=== PATIENT | female | born 1990 | race Caucasian/White ===

== ENCOUNTER 2024-04-01 08:00 | Outpatient (RCR) | payer SELFPAY ==
--- NOTE | 2024-04-01 09:00 | BH.SGPN.GN ---
Behaviors/Verbalizations/Mental Status: [] Eye contact is good. Motor activity is appropriate. Appearance is casual. Speech is Appropriate. Mood is anxious. Affect is congruent. Thoughts are linear and logical. No evidence of psychosis. Reviewed daily check in sheet and no reports of suicidal ideations or intent Client Response/Progress/Benefit: [] Pt participated at times during the group discussion. Attentive. Today was pt's first day in IOP. I have debilitating OCD. I can't drive or be alone. Shared that she was recently admitting to a psychiatric facility for 2 weeks. Briefly elaborated on her OCD and her intrusive thoughts which also impact her functioning, depression, and anxiety. Limited progress noted as this was her first day. Benefited from group support, encouragement, and empathy. Will continue in IOP to prevent decompensation/re-admission, decrease intrusive thoughts, and improve functioning. Narrative Note: []
--- NOTE | 2024-04-01 10:10 | BH.SGPN.GN ---
Behaviors/Verbalizations/Mental Status: []Eye contact is fair. Motor activity is appropriate. Appearance is casual. Speech is Appropriate. Mood is anxious. Affect is congruent. Thoughts are linear and logical. No evidence of psychosis. Client Response/Progress/Benefit: [] Pt was an active participant in group discussions. Attentive during psychoeducation. Contributed during interactive discussions in which peers attempted to define crisis. Group identified crisis examples. Group also worked together to identify warning signs and unhealthy responses to crisis which included shutting down, isolation, avoidance, over-thinking, disordered eating, and self-harm. Pt identified top 3 warning signs as: loss of appetite, stop cooking, and stop wearing makeup. Benefited from increased understanding of crisis and awareness of personal responses to crisis. Pt will continue IOP tx to prevent decompensation, gain healthy coping skills, and increase daily functioning. Narrative Note: []
--- NOTE | 2024-04-01 10:27 | BH.COMM_ITS ---
Communication Note Communication with Client Communication Note: Met with pt to complete initial paperwork and administer the CSSR-S screening and risk assessment. Pt is a mild risk as pt reports thoughts of within the past month. Pt does have intrusive thoughts about suicide, but these thoughts scare pt and they are ego-dystonic. Pt denies any history of suicide attempts, no self-harm history, and no report (past or present) of actual suicidal ideations that were not intrusive thoughts. No access to weapons. Pt is future oriented and family is her number one protective factor. Discussed case with Dr. 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
--- NOTE | 2024-04-01 11:10 | BH.SGPN.GN ---
Behaviors/Verbalizations/Mental Status: []Pt alert and oriented, appropriate grooming/appearance. Eye contact good. Motor activity appropriate. Speech within normal limits. Affect congruent, mood anxious. Thoughts linear, logical, no signs of hallucinations or delusions. Client Response/Progress/Benefit: []Pt was an active participant in group discussions. Attentive during psychoeducation. In small group pt along with peers developed an active plan for their crisis warning signs. Pt identified three crisis warning signs as well as an action plan for each. One crisis warning sign was stop wearing makeup/taking care of self. Pt identified strategies to help with this such as: showering, doing skin care routine, journaling, opposite action, and focusing on accomplishing 1-2 small things. Benefited from increased awareness of crisis warning signs and by developing crisis intervention strategies. Will continue in IOP to continue decreasing reassurance, challenge negative thoughts, and prevent decompensation.
--- NOTE | 2024-04-02 09:00 | BH.SGPN.GN ---
Behaviors/Verbalizations/Mental Status: []Pt alert and oriented, neatly dressed and groomed. Eye contact good. Motor activity appropriate. Speech within normal limits. Affect congruent, mood anxious and depressed. Thoughts linear, logical, no signs of hallucinations or delusions. Reviewed pt?s symptom tracker, no risk for suicidal ideation, plan, or intent 04/02/24. Client Response/Progress/Benefit: [] Pt was an active participant in group discussions. Attentive. Able to identify mental health wins including driving herself to IOP today and cleaning out her fridge. ?Pt's stressor today is ?I?m exhausted and I feel guilty that easy tasks take so much out of me.? Pt stated pt is feeling ?depressed and sad? this morning. Pt receptive to feedback from peers which pt reported was helpful. Progress noted. Benefited from group support, encouragement, and feedback. Will continue in IOP to prevent decompensation, improve daily functioning, and gain distress tolerance skills. ?? Narrative Note: []
--- NOTE | 2024-04-02 11:31 | BH.MDN_ITS ---
Multi-Disciplinary Note Note 60-min Individual: Time Started:: 10:00 Date: 04/02/24 Purpose of session/treatment goals addressed:: To gather information on pt's current stressors, symptoms, triggers, history, and tx goals. Another goal was to build rapport and provide emotional support. Eye Contact:: Good Motor Activity:: Appropriate Appearance:: Neat Speech:: Soft Mood:: Anxious and Depressed Affect:: Congruent (tearful) Thoughts:: Racing, Other (intrusive thoughts) and No evidence of hallucinations/delusions noted Staff Interventions:: psychoeducation on: (OCD and intrusive thoughts), CBT techniques, mindfulness skills, rapport building, strengths perspective, completed risk assessment / safety planning and other (psychosocial assessment) Client Response:: Pt responded well to session, open to meeting with therapist. Pt recently was at a residential program and shared it was helpful, but pt is noticing now just how severe her OCD symptoms are. Pt has struggled for years with not knowing what diagnosis she had as pt's symptoms were similar to bipolar disorder, anxiety, and OCD. Pt stated when she was finally diagnosed with OCD a lot of things started to make sense. Pt feels that she has had OCD traits since she was a teenager, pt can remember having intrusive thoughts when she was a teenager, but pt feels that they never impacted me like this. Pt reported that after the of her last child, pt noticed that her anxiety and OCD got very bad. Pt shared that her labor and deliver was very traumatic and since pt has struggled. Pt was on medication that work for a while, but then pt stopped and since then she has not found something that has helped. Pt has been fearful that this is going to be my life and that she will not get better. Pt is unable to be alone due to her OCD and constant worry, so her husb and has been off work to be with her. Pt reports he is very supportive and has been learning more about OCD to better help pt. Pt struggles with guilt, depression with isolation and crying spells, and not enjoying things in life. Pt is open to working on creating exposure goals and she has been researching how to manage OCD since her diagnosis. Pt was given the first chapter of the Overcoming Unwanted Intrusive thoughts book for homework. Pt and therapist also practiced a calming skills during session, which pt reported was helpful. Pt will see therapist later this week for another session. Risks/Concerns:: Pt denies any suicidal ideations, plan, or intent. Pt denies any thoughts of . Progress Toward Goals/Plan:: Pt's first week of IOP tx, no progress to note yet. Pt does report benefitting from the group environment and feels like she will get a lot out of the program. Pt receptive to meeting with therapist and pt is receptive to the plan to meet twice a week as pt will be doing ERP. Pt's OCD symptoms are impacting her overall functioning including her ability to take care of herself, her kids, and be alone. Pt will continue IOP tx to prevent decompensation, gain distress tolerance, and improve daily functioning. Time Stopped:: 11:00
--- NOTE | 2024-04-02 11:31 | BH.PSA_ITS ---
Source of Information Presenting Problems/Circumstances Problems, Referral Source, Mental Status, Client: Pt is a 34-year-old female with a history of depression and a recent OCD diagnosis. Pt was referred to [facility] initially by her outpatient psychiatrist, but then pt decompensated further and went to a residential program. At admission, pt's symptoms of depression and OCD have been hindering her ability to be alone, use knives, drive, and take care of herself. Pt reports daily intrusive thoughts that pt feels unable to co ntrol/reduce. Pt also reports depressive symptoms that lead to isolation, staying in bed, and frequent crying spells. Psychiatric Presentation Psych Issues & Need for Admission Psychiatric Issues:: Major depressive disorder, recurrent, severe without psychosis; OCD; Primary support and work issues. Past Psychiatric History MH Treatment Hx Treatment History: No suicide attempts ever. one psych admit to [facility] in [place] from March 16 of March 29 for OCD and depression. She had gone to the ER shortly after [place] for anxiety and worsening intrusive thoughts but was not admitted. She first had signs of ego-dystonic OCD from age [age]. She was first depressed after her last baby who is now 4 years old so she was first depressed at age 30. She first took psych meds at age 31. Past medications include numerous SSRIs which she had horrible reactions. Pt has never tried Abilify or any antipsychotics except for Seroquel and it made her not sleep. Pt has never had ERP therapy before. First hospitalization:: 03/16/24-03/29/24 at [facility] Most recent hospitalization:: same as above Medication Trials:: Yes ECT Therapy:: No Age of first mental health symptoms: pt reports first symptoms around [age] but reported I noticed it but I realized it didn't impact me. Describe (age, circumstance, etc) any past hospitalizations: First hospitalization was this year at age 34 Current providers for mental health treatment (counselor, psychiatrist, disease case manager rn, etc.): Pt has been seeing someone at [facility] for medication management, but pt reports she would like to find a new provider. Development & Family of Origin Childhood Significant Childhood Events: Pt reports her childhood was good and grew up Restorationism. Pt chose to willingly left the Restorationism at age 17 but her family did not disown her and they still have a good relationship. Family Who currently lives in your home?: Pt lives with her and their three children. Describe family composition:: Pt is and she and her have been together for 15 years and have a healthy relationship. They have three children ages 15, 11, and 4. Pt is one of seven children and she reports having a good relationship with her family. Pt's parents are both alive and pt gets along well with them. Family History Family Hx of Psychiatric or AOD Problems: Pt denies history of mental health in her immediate family, but pt shared she has a first cousin with OCD. No report of addiction or by suicide in the family. Ethnicity Culture Do you identify yourself with any particular cultural, ethnic background, or community?: Yes (Pt was raised [employer]ism, but she is no longer a part of the adventist.) Sexuality Sexual Orientation: Heterosexual Spirituality Yazidi Do you currently identify with any organized pentecostal?: Oriental Orthodox Beliefs Is there a particular form of support from this community you can use for your recovery?: Yes Mental Status Memory Recent Memory: Good Remote Memory: Good Concentration Concentration: Good Eye Contact Eye Contact: Good Speech Speech: Repetitious Thought Process Thought Process: Obsessions and Ruminations Insight: Good Judgment: Good Behavior: Anxious Orientation Orientation: Time, Person, Place and Situation Appearance Appearance: Appropriate Mood Mood: Anxious and Depressed Affect Affect: Constricted (tearful) Suicide Assessment Suicidal Ideation Have you ever felt like hurting yourself?: Yes Please explain:: Pt has intrusive thoughts about suicide but these are ego- dystonic and give pt severe anxiety. Pt does have thoughts of wishing she could fall asleep and not wake up due to the anxiety. Were you using ETOH/drugs at the time?: No Suicidal Intentional Rating Scale (SIRS): No suicidal thoughts (past or present) (thoughts are intrusive and ego-dystonic.) Physician Notification Violent Behavior/Abuse History Homicidal Ideation Do you have any homicidal thoughts? If so, explain:: No (pt's thoughts about hurting others are related to her OCD.) Abuse Have you ever been abused?: No Please explain:: Pt denies any abuse in childhood or as an adult. Life Events Are there any other significant life events?: Financial loss (pt's has not been able to work consistently due to pt's decompensating mental health- he stays home to be with pt. ) and Hardships (Pt's last labor was traumatic and triggered a lot of pt's OCD symptoms. Pt is currently not able to function at home and this is significantly distressing to pt as she values being a and mother.) Safety Do you ever feel threatened in your home? If yes, describe:: No Adult Social History Age 17 to Present Describe your current support system:: Pt has strong support from her , family, sisters, and her in-laws. Substance Use Substance Substance Use Type: Caffeine Specific Drugs What specific drugs have you used?: Pt denies any drug or alcohol abuse or use. IV Substance Use Do you have a history of IV use?: none reported Leisure/Social Activities Interests What do you enjoy or might be interested in learning about?: Pt shared she used to enjoy a lot but she has been depressed to engage in her hobbies. These hobbies include; gardening, crafting, crocheting, playing with her kids, drinking coffee, and having sister days. Education & Occupational Histo Education What is your level of education?: Middle School (Gr. 6-8) (Pt was raised [employer]ism, so pt completed 8th grad. 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 List any previous volunteering you may have done:: Pt is interested in doing this someday. Service Service Have you ever been in the ?: No Legal History Records Have you had any past legal charges?: No Do you have any current legal charges?: No Have you ever been incarcerated? If yes, describe:: No Court Orders Have you had any past court orders for psychiatric treatment?: No Do you have a present court order for psychiatric treatment?: No Problem Checklist Current Problem Areas Problem List: Nutritional/Eating pattern changes (when depressed pt has a low appetite ), Depressed mood/sad, Bereavement (pt reports grief due to her ability to function being so bad.), Anxiety, Traumatic stress, Inattention, Sleep problems and Pertinent health issues (ruptured uterus during emergency in October 2019 and bilateral tubal ligation which she later had reversed in 2023.) Discharge Planning Needs Anticipated Follow-Up Mental Health Center (Name/Phone Number):: Pt saw a provider at [facility], but pt would like to switch. Safety Fire Boss's Assessment Client's Needs What are the client's goals?: Get back to functioning at her baseline, reduce OCD, and be able to be the mom I want to be again. Diagnoses Diagnoses Diagnosis #1:: MDD, recurrent, severe, without psychosis. Diagnosis #2:: OCD Interpretive Summary Interpretive Summary Interpretive Summary: Pt is a 34-year-old female with a history of depression and OCD who was referred to [facility] after being admitted from March 16 to March 29, 2024 at [facility] in [place], [place]. Pt states that her symptoms of OCD and depression began about 4 years ago 1 week after the traumatic of her third child. She states she was in labor for 48 hours and had to have an emergency due to distress and pt had a ruptured uterus. This was very traumatic for pt and Pt began having intrusive thoughts after this including intrusive thoughts of self-harm and harming others and thoughts that she might be a pedophile and all of these thoughts were extremely ego-dystonic. 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 Pt was recently diagnosed with bipolar 2 disorder because she states that she took 8 antidepressants which gave her possible manic symptoms. During the interview Pt states that when taking a different SSRI she had tremor, diarrhea, nausea and vomiting. She slept less than 2 hours a night but she states that she was extremely tired all throughout this. She had low energy and was not talking fast nor getting a lot done during this episode. During these episodes her intrusive thoughts also greatly worsened. Dr. Hernandez ([facility] psychiatrist) does not believe pt was exhibiting manic symptoms and does not feel pt has bipolar disorder. Pt endorses passive thoughts of due to the severity of her OCD and depression. Pt reports since discharge from the hospital still has intrusive thoughts about harming herself or others and remains very depressed. She does not use any caffeine now, but she used to. In the past her intrusive thoughts also have been around believing she had breast cancer and then doing frequent self breast exams resulting in physical pain. She took Celexa for 2 years which she did okay on but when she wanted to wean off she worsened. She then was changed to Prozac but her symptoms worsened. She had her remove all knives out of the home except 1 because she was having intrusive ego- dystonic thoughts that she would harm herself with a knife. Pt reports ?OCD has ruined my life and my kids lives.? She denies self-harm, hallucinations or delusions. She endorses sadness, hopelessness, guilt, low energy, fatigue, decreased concentration. No report of alcohol or drug use or abuse. Pt denies any abuse during childhood or as an adult. Treatment Plan Recommendations Recommendations Guidelines Recommendations:: Pt will start IOP as the structure, support, education and group therapy will hopefully prevent worsening of Pt's symptoms that could require rehospitalization. The Pt felt safe during the interview and if it anytime she does not feel safe she agrees to let us know or go to the emergency room. The risk, options, possible side effects and complications of the medications were discussed between pt and Dr. Hernandez and pt understands and accepts these.
--- NOTE | 2024-04-02 11:31 | BH.MTP ---
Master Treatment Plan Patient Information Program Physician:: Dr. Shelia Hernandez Primary Therapist:: Shanita RICHARDS Psychiatric Diagnoses Psychiatric Diagnoses:: Major depressive disorder, recurrent, severe without psychosis F33.2; OCD Diagnosis Code(s):: F33.2 Estimated LOS Estimated LOS (in weeks):: 8 Problem/Goal #1 Problem/Goal #1 Stated Goal:: Pt will reduce overall frequency and intensity of anxiety and OCD symptoms so that daily functioning is less impaired. Description of Barriers: Pt has been on numerous medications in the past and had significant side effects. Pt reports symptoms of OCD have gotten so bad that pt is unable to be alone. Functional Impact: Pt is a 34-year-old female with a history of depression and a recent OCD diagnosis. Pt was referred to [facility] initially by her outpatient psychiatrist, but then pt decompensated further and went to a residential program. At admission, pt's symptoms of depression and OCD have been hindering her ability to be alone, use knives, drive, and take care of herself. Pt reports daily intrusive thoughts that pt feels unable to control/reduce. Pt also reports depressive symptoms that lead to isolation, staying in bed, and frequent crying spells. Goal Relevant Strengths/Supports: Pt is receptive to treatment and prior to coming to [facility], pt did a residential program. Pt has strong family support and insight to her OCD symptoms. Objectives Objective #1: Stated Objective: Pt will improve ability to cope with OCD symptoms and reduce avoidance by setting 1-2 small exposure goals each week. Interventions: Through group and individual therapy, pt will gain skills on distress tolerance and sitting with the uncomfortable. Therapist will help pt set small, realistic exposure goals each week. Therapist will have pt practice these goals both in session and at home. Therapist will provide psychoeducation on why this is important to reducing anxiety, OCD, and phobias. Therapist will also provide psychoeducation on intrusive thinking and reducing safety behaviors. Discharge Criteria: Pt will have accomplished this goal when pt can report accomplishing at least 1 exposure goal per week and can report reduced avoidance overall. Target Date: 05/27/24 Review Date: 04/22/24 Status: open Objective #2: Stated Objective: Pt will identify 2-3 anxiety and OCD triggers and 2 coping skills to use to manage anxiety and to reduce DSM-5 scores. Interventions: Through group and individual sessions, pt will gain awareness of anxiety and OCD triggers and learn numerous techniques to manage anxiety and OCD symptoms. Therapist will teach mindfulness and other calming techniques to manage symptoms and increase distress tolerance skills. Therapist will also help pt utilize mindfulness skills to sit with the uncomfortable to increase confidence in managing triggers. Discharge Criteria: Pt will have met this goal when pt can identify at least 2 triggers and 2 ways to cope with anxiety and OCD and when his DSM-5 scores have reduced. Target Date: 05/27/24 Review Date: 04/22/24 Status: open Problem/Goal #2 Problem/Goal #2 Stated Goal:: Pt will decrease depressive symptoms, hopelessness, isolation, crying spells, and negative self-talk. Description of Barriers: Pt has been on numerous medications in the past and had significant side effects. Pt reports symptoms of OCD have gotten so bad that pt is unable to be alone. Functional Impact: Pt is a 34-year-old female with a history of depression and a recent OCD diagnosis. Pt was referred to [facility] initially by her outpatient psychiatrist, but then pt decompensated further and went to a residential program. At admission, pt's symptoms of depression and OCD have been hindering her ability to be alone, use knives, drive, and take care of herself. Pt reports daily intrusive thoughts that pt feels unable to control/reduce. Pt also reports depressive symptoms that lead to isolation, staying in bed, and frequent crying spells. Goal Relevant Strengths/Supports: Pt is receptive to treatment and prior to coming to [facility], pt did a residential program. Pt has strong family support and insight to her OCD symptoms. Objectives Objective #1: Stated Objective: Pt will learn and utilize 2-3 healthy coping strategies to better manage depressive symptoms as shown by a decrease of DMS-5 symptoms for depression. Interventions: Through group and individual sessions, therapist will help pt identify triggers and warning signs of depression and guilt including emotional, physical, and behavioral changes. Therapist will teach pt various coping skills to manage symptoms and give pt tangible resources to use to regulate emotions. Therapist will use cognitive restructuring techniques and help pt gain awareness of negative thoughts that reinforce guilt and depression. Therapist will provide psychoeducation on maintenance cycles and help pt learn ways to break unhealthy maintenance cycles. Therapist will help pt incorporate behavioral activation and assist pt in setting SMART goals. Discharge Criteria: Pt will have met this goal when can report learning and using at least 2 coping skills to manage depressive symptoms and reduce isolation. Additionally, pt will have met this goal when pt's DSM-5 scores for depression decrease. Target Date: 05/27/24 Review Date: 04/22/24 Status: open Objective #2: Stated Objective: Pt will accomplish 1-2 behavioral activation goals each day while in IOP tx. Interventions: Therapist will provide education on the importance of opposite action, small goals, and changing behavior to change emotion. Therapist will provide pt with a chart to track habits that pt can fill out daily. Therapist will help pt give self credit for her wins to promote motivation and self-confidence. Discharge Criteria: Pt will have accomplished this goal when she can report accomplishing 1-2 behavioral activation goals and it is shown on pt's weekly tracker. Target Date: 05/27/24 Review Date: 04/22/24 Status: open
--- NOTE | 2024-04-03 09:05 | BH.SGPN.GN ---
Behaviors/Verbalizations/Mental Status: [] Eye contact is good. Motor activity is appropriate. Appearance is casual. Speech is Appropriate. Mood is anxious and dysthymic. Affect is congruent. Thoughts are linear and logical. No evidence of psychosis. Reviewed daily check in sheet and no reports of suicidal ideations or intent. Client Response/Progress/Benefit: [] Pt was an active participant in group discussions. Attentive. Did well to identify 2 mental health wins including being able to get to group today despite wanting to stay in bed. Identified use of opposite action and challenging herself to drive herself. Additional win noted as using opposite action and positive self-talk when struggling with depressive sx yesterday. Current stressor noted as struggling with feeling low and less motivated today but her son asked to go to the library. Benefited from group support, encouragement, and feedback. Will continue in IOP to prevent decompensation, promote mood stability, and increase consistent use of healthy coping. Narrative Note: []
--- NOTE | 2024-04-03 10:10 | BH.SGPN.GN ---
Behaviors/Verbalizations/Mental Status: [] Pt alert and oriented, casually dressed and groomed. Eye contact good. Motor activity appropriate. Speech within normal limits. Affect congruent, mood depressed. Thoughts linear, logical, no signs of hallucinations or delusions. Client Response/Progress/Benefit: []Pt an active participant in group discussions on defining conflict (internal/external) and possible benefits to conflict. Attentive during psychoeducation on conflict styles (avoidant, accommodating, competing, cooperative) and engaged during group discussion in which peers identified the benefits and consequences to each conflict style. Pt identified that she tends to be avoidant more than the other styles. Benefited from increased awareness of the impact of conflict styles in mental health. Will continue in IOP tx to prevent decompensation, stabilize mood, and improve functioning. Narrative Note: []
--- NOTE | 2024-04-03 11:10 | BH.SGPN.GN ---
Behaviors/Verbalizations/Mental Status: []Client alert and oriented, casually dressed and groomed. Eye contact good. Motor activity appropriate. Speech within normal limits. Affect congruent, mood euthymic and anxious. Thoughts linear, logical, no signs of hallucinations or delusions. Client Response/Progress/Benefit: [] Pt engaged in session AEB contributing to discussion and engaging in small group. Attentive during discussion on strategies for more effectively managing conflict in personal life. Pt participated in small group for activity and did well practicing how to manage conflict scenarios. Pt given handout on fair fighting rules and how to identify common conflict barriers. Pt indicated what needs improvement in conflict for them which was to ?take time when things get heated and return? when addressing conflict. Appeared to benefit from gaining strategies to help Pt better manage conflict. Will continue IOP tx prevent decompensation, increase distress tolerance skills, and improve daily functioning. ? Narrative Note: []
--- NOTE | 2024-04-04 09:00 | BH.NA ---
Physical Data Vital Signs Pulse Rate: 79 Blood Pressure: 150/70 Height/Weight Height: 1.55 m Weight:: 102.058 kg Weight in Pounds: 225.0 lbs Current Medication Compliance Medication Compliance Do you take your medication as prescribed?: Yes Nutritional History Appetite Nutritional Instructions: Describe your appetite:: Good Additional nutritional information:: Client reports appetite is good now, but does report losing about 65lbs in 4-5 months due to lack of appetite. Functional Assessment Sleep Pattern Describe any problems with sleeping: Client states she sleeps about 4-5 hours per day. 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 If so, list type and date:: Yes (tubal, tubal reversal, ) Substance Abuse Substance Abuse Please describe substance abuse in the last 30 days:: Client denies alcohol, tobacco, substance or caffeine use. Mental Status Summary Mental Status Significant Findings/Observations on Appearance and Mood:: Client is alert and oriented x 4. Client is casually groomed. Client is cooperative with assessment. Client makes good eye contact. Client's voice has normal rate and volume. Client has an appropriate affect, but is tearful at times. Client makes logical associations and has normal processing. Client denies delusions/hallucinations. Client does report intrusive thoughts about , but denies active SI or intent or plan. Suicide Assessment Suicidal Ideation Are you currently or have you been suicidal in the past?: Yes Suicidal Intentional Rating Scale (SIRS): Suicidal thoughts (past) Physician Notification Past Psychiatric History MH Treatment Hx Past Psychiatric Medications:: Celexa (yun) Prozac (agitation) Wellbutrin (uyn) Luvox (hallucinations of killing herself) Age of first mental health symptoms: Client states looking back, she thinks she has had some OCD tendencies since age 12-15. Client states she was not on medication for mental health at all until she had some depression about 4 years ago. Describe (age, circumstance, etc) any past hospitalizations: [facility]- 03/12/24-03/29/24- anxiety, OCD, intrusive thoughts about harming herself or others (with no intent) Current providers for mental health treatment (counselor, psychiatrist, porter sample case, etc.): [facility], [facility] for psychiatry Fall Risk Assessment Age Age: Less than 60 Mental Status Mental Status: Willing & able to ask for assistance when needed Physical Status Physical Status: No problems Impairments Impairments: None Elimination Elimination: Continent AND independent Gait or Balance Gait or Balance: Walks independently Hx of Falls History of falls in the past 6 months: No known history Medications/Substances Psychotropics:: Mood stabilizers Medications/substances used within the past 24 hours or ordered to administer: 1-2 of the medications/substances listed above Total Score Total Points:: 1 RN Summary of Impressions Impressions Recommendations Impressions: Psychiatric Issues: 1. Major depressive disorder, recurrent, severe without psychosis 2. OCD 3. Primary support and work issues. Level of Care How do the client's current symptoms and functional deficits support need for this level of care?: Client was referred to IOP by outpatient psychiatrist for mood instability, intrusive thoughts. Client was hospitalized at [facility] after her initial intake with IOP. Client was hospitalized 03/12/24-03/29/24. Client is tearful when she talks about current mental health, stating she continues to have intrusive thoughts about and about harming herself. Client states she has no SI intent or plan, and states her children and her are her protection factors. Client states she feels so depressed it is difficult to get out of bed most days and client often thinks why am I alive?. Client is apprehensive about medications, stating she has not had good experiences on SSRI's (not sleeping, intrusive thoughts). Client states after her 4 year old was born, she had obsessive thoughts about having breast cancer and constantly was doing checks and going to the doctor to make sure she was okay. Client states she is trying not to do any compulsions at this time, which she states is stressful. Client is tearful when she states she just wants to feel better and wants the intrusive thoughts to stop. IOP will promote gains and prevent further decompensation while providing social support and skills training.
--- NOTE | 2024-04-04 10:10 | BH.SGPN.GN ---
Behaviors/Verbalizations/Mental Status: [] Pt alert and oriented, casually dressed and groomed. Eye contact good. Motor activity appropriate. Speech within normal limits. Mood: anxious. Affect: congruent. Thoughts linear, logical, no signs of hallucinations or delusions. Client Response/Progress/Benefit: [] Pt did not participate in group discussions, however was attentive during psychoeducation on self-sabotage and its impact on mental health. Attentive as peers worked together to define self-sabotage. Attentive as peers provided examples of the eight types of self-sabotage (procrastination, self-medicating, unrealistic expectations, people-pleasing, and poor boundaries). Attentive as peers worked to identify reasons for self-sabotage behaviors (feels comfortable, can distract,perceived control, fear of success, and a type of self-protection). Seemed to benefit from gaining awareness about the self-sabotage. Pt to continue IOP tx to prevent decompensation/re-admission to psych unit, stabilize mood, increase healthy coping, decrease intrusive thoughts, and improve functioning. Narrative Note: []
[2024-04-04 12:09] VITALS: BP 150/70; PULSE 79
--- NOTE | 2024-04-04 12:52 | PCM.BH.PSYEV ---
Psychiatric Evaluation Initial Evaluation Initial Evaluation: History of Present Illness: [] The patient is a 34-year-old female with a history of depression, OCD and recent diagnosis of possible bipolar disorder who was referred to the [facility] and behavioral health after being admitted from March 16 to March 29, 2024 at [facility] in [facility]. The patient states that her symptoms of OCD and depression began about 4 years ago 1 week after the traumatic of her third child. She states she was in labor for 48 hours and had to have an emergency due to distress. She was found to have meconium stained amniotic fluid and and was told she had a uterine rupture and pressured into tubal ligation at that time. The patient later reversed this in December 2023 as it felt forced. The patient began having intrusive thoughts after this of her child third child of involving intrusive thoughts of self-harm and harming others and thoughts that she might be a pedophile and all of these thoughts were extremely ego-dystonic. 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 The patient was recently diagnosed with bipolar 2 disorder because she states that she took 8 antidepressants which gave her possible manic symptoms. During the interview the patient states that when taking a different SSRI she had tremor, diarrhea, nausea and vomiting. She slept less than 2 hours a night but she states that she was extremely tired all throughout this. She had low energy and was not talking fast nor getting a lot done during this episode. During these episodes her intrusive thoughts also greatly worsened. The patient endorses passive thoughts of and since discharge from the hospital still has intrusive thoughts about harming herself or others and remains very depressed. She does not use any caffeine. In the past her intrusive thoughts also have been around believing she had breast cancer and then doing frequent self breast exams resulting in physical pain. She took Celexa for 2 years which she did okay on but when she wanted to wean off she worsened. She then was changed to Prozac but her symptoms worsened. She had her remove all knives out of the home except 1 because she was having intrusive ego-dystonic thoughts that she would harm herself with a knife. She denies self-harm, hallucinations or delusions. She endorses sadness, hopelessness, guilt, low energy, fatigue, decreased concentration. Current Psychiatric Medications: [] Lamictal 50 mg p.o. daily (supposed to go up to 75 mg on April 03 but she has not), gabapentin 300 mg p.o. nightly which is help with sleep. Not taking Vistaril anymore. Past Psychiatric History: [] No suicide attempts ever. 1 psych admit as noted above March 16March 29 for OCD and depression. She had gone to the ER shortly after [facility] for anxiety and worsening intrusive thoughts but was not admitted. She first had signs of ego-dystonic OCD from age [age]. She was first depressed after her last baby which who is now 4 years old so she was first depressed at age 30. She first took psych meds at age 31. Past medications include numerous SSRIs which she had horrible reactions to including those described in the present illness. She has never tried Abilify or any antipsychotics except for Seroquel and it made her not sleep because she got what sounds like akathisia from it. Substance Use History: [] Non-smoker. No vaping. No alcohol and no drug use. Allergies: [] Morphine and opiates psych meds plus amino acids and a woman's vitamin and fish oil. Medications: [] See above Past Medical History: [] Supraventricular tachycardia, overweight, ruptured uterus during emergency in October 2019 and bilateral tubal ligation which she later had reversed in 2023. Regular menstrual periods and uses condoms now but is getting vasectomy soon. She understands the risk he knows of getting again and does not wish to get again but reversed her tubal ligation as she felt she was pressured into it. Family Psychiatric History: [] Mother 62 years old and father 61 years old. She has a first cousin with OCD. No substance issues and no completed suicides in the family. Personal/Social History: [] Patient was born and raised [employer] in [facility]. She lived with her parents and 6 siblings growing up and her family was supportive of her choice to leave it as a teen at age 17 and she had a good relationship with her family. She completed eighth grade and did not attend college. She denies physical, emotional or sexual abuse. She has been to her for 15 years and they have been together for 3 years prior to that. 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 She lives with her and children and [place] and has been for 15 years. Her is her main social support but she is also close to family and friends. Her was formally Rest[employer]ist as well and works in construction but currently he states at home to take care of her. She is sexually active with her but has decreased interest due to her mental health issues. She would like to find a job involving caring for the elderly. 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 Review of Systems: [] Review of systems is negative except as noted in present illness. Vital Signs: [] Vital signs reviewed in the nurses notes and updated and the patient is deemed medically able to participate in the IOP. Mental Status Examination: [] The patient is a 34-year-old female who appears normal for stated age and is casually dressed and groomed with good hygiene. She is ambulatory with a normal gait and has no psychomotor agitation or retardation. She is cooperative and pleasant during the interview. Eye contact is good and speech is normal rate and rhythm and fluent with no pressure. Mood is anxious and depressed. Affect is constricted. Thought process is goal-directed and organized. Thought content: There is evidence of passive thoughts of and there is evidence of intrusive thoughts which are ego dystonic and involves self-harm, harming others, suspicion of being a pedophile and other. No definitive rituals. There is no evidence of suicidal ideation, homicidal ideation, plan for suicide, hallucinations, delusions or symptoms of yun. Reality testing is intact. Intelligence is average. Judgment is intact. Insight Limited but some present. Impulsivity moderate. Diagnoses: [] 1. Major depressive disorder, recurrent, severe without psychosis 2. OCD 3. Primary support and work issues. Plan: [] The patient will start the IOP at [facility] as the structure, support, education and group therapy will hopefully prevent worsening of the patient's symptoms that could require rehospitalization. The patient felt safe during the interview and if it anytime she does not feel safe she agrees to let us know or go to the emergency room. The risk, options, possible side effects and complications of the medications were discussed with the patient and she understands and accepts these. The patient agrees to try result he as currently her medication really does not treat her OCD and really does not even treat her depression. She has had difficulty tolerating any antidepressants but agrees to try low-dose of an antipsychotic which are also used to treat depression and anxiety. However result he was deemed to be too expensive on the patient's insurance so prescription was sent in for Abilify 2 mg p.o. daily. If she tolerates this we will later increase the Lamictal to 75 mg and possibly increase the Abilify as indicated. Could try Latuda or Vraylar later but insurance she is self-pay and they probably will not pay be able to afford. She will continue to follow-up with her outpatient providers and I will see the patient in follow-up in 1 to 2 weeks.
--- NOTE | 2024-04-04 13:06 | BH.DR.ITP ---
Initial Treatment Plan Patient Information Visit Information: ADMISSION DATE: EXPECTED LOS: 4-6 weeks Problems/Symptoms Problem #1:: Depression Symptom:: Sadness, hopelessness, passive thoughts of , guilt, low energy, fatigue, decreased concentration, biological disruption of appetite and sleep Problem #2:: Anxiety Symptom:: Worry, rumination, intrusive ego-dystonic thoughts
--- NOTE | 2024-04-04 16:10 | BH.MDN_ITS ---
Multi-Disciplinary Note Note 60-min Individual: Time Started:: 11:15 Date: 04/04/24 Purpose of session/treatment goals addressed:: To work on goal #1 of pt's tx plan. Reviewed intrusive thoughts and types of intrusive thoughts. Eye Contact:: Good Motor Activity:: Appropriate Appearance:: Neat Speech:: Appropriate Mood:: Anxious, Depressed and Other (hopeful) Affect:: Congruent Thoughts:: Linear, Logical and No evidence of hallucinations/delusions noted Staff Interventions:: mindfulness skills (practiced a mindfulness skill in session), strengths perspective, goal setting and other (reviewed chapter 1 and 2 from the overcoming unwanted intrusive thoughts book.) Client Response:: Pt responded well to session, open to meeting with therapist. Pt reports feeling depressed, but being at [facility] is giving her some hope. Pt read the first chapter of the overcoming unwanted intrusive thoughts book and said this book is me. Pt stated she connected so much with the false comfort and she is gaining more awareness of what intrusive thoughts she has. Pt stated her most discomforting intrusive thoughts include thoughts of killing herself, thoughts of hurting her children, and thoughts of going crazy. Pt has had intrusive thoughts about sexually abusing her child, but pt stated she has been able to overcome that one. Pt receptive to learning about forbes mind as a technique to reduce reassurance seeking and false comfort when pt has dist urbing intrusive thoughts. Pt gained awareness of why thoughts become sticky and why some thoughts produce anxiety while others do not. Discussed how typically intrusive thoughts that become sticky are ego-dystonic and go against what pt values. Pt encouraged to practice calming skills when she gets the wave of anxiety that comes with intrusive thoughts. Pt and therapist practiced deep breathing, visualization, and 5-senses. Pt also encouraged to begin practicing the forbes mind self-talk examples from the book. Pt was given chapter 3 for homework. Risks/Concerns:: Pt denies any suicidal ideations, plan, or intent. Pt denies any thoughts of . Progress Toward Goals/Plan:: Pt responding well to IOP tx, she reports being with peers and learning more about OCD to be life changing. It's symptoms are ongoing, but pt is receptive to the treatment plan and willing to work on exposure goals. Pt's symptoms of OCD and depression interfere with her daily functioning and often lead to pt isolating and crying most of the day. Pt will continue IOP tx to prevent decompensation, increase distress tolerance skills, and improve daily functioning. Time Stopped:: 12:15
--- NOTE | 2024-04-08 11:10 | BH.SGPN.GN ---
Behaviors/Verbalizations/Mental Status: [] Pt alert and oriented. Appearance is casual. Eye contact good. Motor activity appropriate. Speech within normal limits. Affect is anxious. Mood is congruent. Thoughts linear, logical, no signs of hallucinations or delusions. Client Response/Progress/Benefit: [] Pt was engaged during discussion and experiential activity. Completed the worksheet challenging them to develop a personal SMART goal. Pt chose a SMART goal to drive by myself for 15 minutes a week. Believes this goal will benefit her by not being reliant on her as much. Identified obstacles such as family interference, depression, negative thoughts. .Benefited from this group by developing a short-term SMART goal related to mental health. Will continue IOP to prevent decompensation/re-admission to psych unit, decrease intrusive thoughts, and improve functioning. Narrative Note: []
--- NOTE | 2024-04-08 15:09 | BH.MDN ---
Multi-Disciplinary Note Note 45-min Individual: Time Started:: 09:20 Date: 04/08/24 Purpose of session/treatment goals addressed:: To work on goal #1 of pt's tx plan by identifying ERP goals and goal #2 to identify behavioral activation goals. Eye Contact:: Good Motor Activity:: Appropriate Appearance:: Neat Speech:: Soft Mood:: Anxious and Depressed Affect:: Full Thoughts:: Racing and Other (intrusive thoughts) Staff Interventions:: CBT techniques, mindfulness skills, strengths perspective, goal setting (began working on the fear ladder.) and taught coping skills Client Response:: Pt responded well to session, open to meeting with therapist. Pt reports feeling low today and shared this weekend was difficult. 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 Pt was more hopeful today compared to last session as pt did not seek as much reassurance and she shared being excited about goal setting. Pt and therapist worked first on identifying daily tasks that pt wants to return to and/or keep doing consistently. These tasks included doing her makeup, showering, cooking, practicing mindfulness, and staying out of her bedroom. Pt can see the benefit in beginning to track these habits and she will start doing this every day she comes to [facility]. Pt and therapist also discussed ERP and the creation of the fear ladder. Pt identified some of her high level fears which included using a knife around her kids. Pt brainstormed other goals that could go on her fear ladder including driving by herself, being alone with her kids, going to her mother and her [id number] houses, and holding a knife around her kids. Pt gained insight to how ERP works and how to set realistic goals. Pt also reviewed some of the calming skills that were discussed last week. Pt will take home the fear ladder and continue to work on it with her . Risks/Concerns:: Pt denies any suicidal ideations, plan, or intent. Pt denies any thoughts of . Progress Toward Goals/Plan:: Limited progress as pt recently started [facility], but pt is so far very consistent and engaged in group sessions. Pt's OCD and depressive symptoms continue to interfere with her daily functioning and lead to significant distress. Pt reports being willing to work on ERP goals, but pt recognizes it will be hard work. Pt also receptive to setting behavioral activation goals and pt feels that this will help her get back into her baseline. Pt will continue IOP tx to prevent decompensation, improve daily functioning, and gain distress tolerance skills. Time Stopped:: 10:00
--- NOTE | 2024-04-09 09:00 | BH.SGPN.GN ---
Behaviors/Verbalizations/Mental Status: []Pt alert and oriented, casually dressed and groomed. Eye contact good. Motor activity appropriate. Speech within normal limits. Affect congruent, mood depressed. Thoughts linear, logical, no signs of hallucinations or delusions. Reviewed pt?s symptom tracker, no risk for suicidal ideation, plan, or intent /. Client Response/Progress/Benefit: [] Pt was an active participant in group discussions. Attentive. Able to identify mental health wins including I drove myself today and I cooked last night.? Pt stated she had not been able to do these things recently due to her depression. Pt's stressor today is ?things I used to be able to do so easily are so hard right now.? Pt receptive to support from peers. Pt stated pt is feeling depressed but a smidgen better this morning. Pt receptive to feedback from peers which pt reported was helpful. Progress noted. Benefited from group support, encouragement, and feedback. Will continue in IOP tx to prevent decompensation, promote mood stability, and increase distress tolerance. Narrative Note: []
--- NOTE | 2024-04-09 10:10 | BH.SGPN.GN ---
Behaviors/Verbalizations/Mental Status: [] Eye contact is good. Motor activity is appropriate. Appearance is casual. Speech is Appropriate. Mood is anxious and depressed. Affect is congruent. Thoughts are linear and logical. No evidence of psychosis Client Response/Progress/Benefit: [] Pt responded well to session AEB contributing to small group discussion, taking notes, and listening attentively to others. Group defined anger and discussed the benefits of managed anger and anger as a secondary emotion. Group shared perspective on benefits of anger as advocating for self and getting needs met, a means to internal change, as well as a catalyst for change. Pt engaged in group discussion on common triggers for anger. Identified when other's expectations are not the same as pt's as an anger trigger. Appeared to benefit from increased knowledge of the anger cycle as well as personal triggers. Will continue IOP to increase healthy coping, prevent decompensation, and improve functioning. Narrative Note: []
--- NOTE | 2024-04-09 10:59 | PCM.BH.PN_ITS ---
Progress Note Progress Note: History of Present Illness/Interim History: The patient is a 34-year-old female with a history of depression and OCD who is seen in follow-up at the [facility] behavioral health [facility]. I last saw the patient 1 week ago and at that time Abilify was added and she has been taking it for 5 days. She states that her sadness now has lessened in the past few days and she is feeling slightly less depressed currently. The patient had been admitted March 16March 29 to a psychiatric unit due to having passive thoughts of and intrusive thoughts about harming herself or others due to her OCD. In the past she also had intrusive thoughts around believing she had breast cancer and did frequent self breast exams resulting in physical pain. She has trouble going on and off meds in the past and describes feeling worse on the Abilify for several days until recently when she started feeling better. She still has some sadness and occasional hopelessness. She is having less passive thoughts of lately. She continues to have the [place] dystonic thoughts that are intrusive and involve thoughts of self-harm, suspicion of being a pedophile and other negative thoughts. There is no evidence of suicidal ideation, plan for suicide, homicidal ideation, hallucinations or delusions. Current Psychiatric Medications: [] Lamictal 50 mg p.o. daily; gabapentin 300 mg nightly but she can take a second dose during the day if she gets extremely anxious. The second dose of the gabapentin does make her tired though. Abilify 2 mg p.o. daily (x 5 days only). Mental Status Examination: [] The patient is a 34-year-old female who appears normal for stated age is casually dressed and groomed with good hygiene. She is ambulatory with a normal gait and has no psychomotor agitation or retardation. She is cooperative during the interview. Eye contact is good and speech is normal rate and rhythm and fluent with no pressure. Mood is anxious and depressed. Affect is mildly constricted. Thought process is goal-directed and organized. Thought content: There is evidence of some passive thoughts of and continued ego intrusive thoughts described in the present illness. There is no evidence of suicidal ideation, plan for suicide, homicidal ideation, hallucinations or delusions. Reality testing is intact. Intelligence is average. Judgment is intact. Insight fair and improving. Impulsivity moderate. Diagnoses: [] 1. Major depressive disorder, recurrent, severe without psychosis 2. OCD 3. Primary support and work issues Plan: [] The patient will continue the IOP at [facility] as the structure, support, education and group therapy will hopefully prevent worsening of the patient's symptoms that could require rehospitalization. The risk, options, possible side effects and complications of the medications were discu ssed again with the patient and she understands accepts these. No medication changes were made today as she just started the Abilify 5 days ago. She will continue to follow-up with her outpatient providers and I will see the patient in follow-up in 2 weeks. The patient describes some symptoms of premenstrual dysphoria but does not tolerate SSRIs or SNRIs. She has never taken control pills and I discussed with the patient that low-dose control pills might help with her PMDD. We will continue her Lamictal and Abilify at the same dose for now.
--- NOTE | 2024-04-09 11:10 | BH.SGPN.GN ---
Behaviors/Verbalizations/Mental Status: []Client alert and oriented, casually dressed and groomed. Eye contact fair. Motor activity appropriate. Speech within normal limits. Affect congruent, mood anxious. Thoughts linear, logical, no signs of hallucinations or delusions. Client Response/Progress/Benefit: []Pt was engaged throughout AEB contributing to group discussion and activity. Group processed how they each responded to the intentionally difficult task they were asked to completed and described the physical and emotional anger cues experienced throughout, as well as strategies used for managing these frustrations. Pt contributed as group brainstormed healthy coping skills for better managing anger which included: music, walking/exercise, taking a break, healthy venting, avoiding unnecessary stressors, reflection, and journaling. Pt cooperative with working in small groups to identify what strategy wants to work on to help interrupt personal anger cycle. Pt shared she learned today I wasn't allowed to feel anger as a child. Pt to continue IOP to continue anxiety exposure goals, challenge negative thoughts, and prevent decompensation.
--- NOTE | 2024-04-10 09:05 | BH.SGPN.GN ---
Behaviors/Verbalizations/Mental Status: [] Eye contact is good. Motor activity is appropriate. Appearance is casual. Speech is Appropriate. Mood is anxious. Affect is congruent. Thoughts are linear and logical. No evidence of psychosis. Reviewed daily check in sheet and no reports of suicidal ideations or intent. Client Response/Progress/Benefit: [] Pt was an active participant in group discussions. Attentive. Daily symptom tracker notes 3/5 for anxiety and 2/5 for depression. Shared with the group that she is continuing to work on her exposure goals. Shared a few of her exposure goals and elaborated on the point of gradual exposure to anxiety-inducing situations and the importance of not giving into her compulsions. Feels ?hopeful? and she is beginning to look forward to ?things? and is less depressed. Increase independence and less reliance on her to drive her and care for the kids. Progress noted. Benefited from group support, encouragement, and feedback. Will continue in IOP to prevent decompensation, decrease intrusive thoughts, and improve functioning. Narrative Note: []
--- NOTE | 2024-04-10 10:15 | BH.SGPN.GN ---
Behaviors/Verbalizations/Mental Status: []Client alert and oriented, casually dressed and groomed. Eye contact good. Motor activity appropriate. Speech within normal limits. Affect congruent, mood euthymic, Thoughts linear, logical, no signs of hallucinations or delusions Client Response/Progress/Benefit: []pt responded well to session, contributing to discussion and engaged during the activity. Group identified the benefits of change which included: personal growth, increased confidence, improving mental health, progressing, and becoming resilient. Worked with the group to identify barriers to change and pt identified personal barriers as anxiety, fear of failure, and avoidance. pt participated along with group in activity where they discussed the emotions related to change. Benefited from increased awareness and understanding of emotions, benefits, and barriers related to change. Will continue IOP tx to promote mood stability, increase self-confidence, and increase self-confidence. Narrative Note: []
--- NOTE | 2024-04-10 13:53 | BH.MDN ---
Multi-Disciplinary Note Note 45-min Individual: Time Started:: 11:20 Date: 04/10/24 Purpose of session/treatment goals addressed:: To work on goal #1 of pt's tx plan and to discuss response prevention techniques. Eye Contact:: Good Motor Activity:: Appropriate Appearance:: Neat Speech:: Appropriate Mood:: Anxious and Other (hopeful) Affect:: Full Thoughts:: Linear, Logical and No evidence of hallucinations/delusions noted Staff Interventions:: CBT techniques, mindfulness skills, strengths perspective, goal setting, taught coping skills and other (reviewed fear ladder goals and discussed tracking these. gave homework to journal) Client Response:: Pt responded well to session, open to meeting with therapist. Pt reports she is noticing her intrusive thoughts or [place], which is the name pt gave her OCD, more often. Pt has been reading the chapters discussed in the Overcoming Unwanted Intrusive Thoughts book and she has been working on her fear ladder goal of driving herself places and going someone after IOP. Pt receptive to filing out a tracking form each time she does one of her exposure goals to help pt see how her anxiety changes and her experience. Also reviewed mindfulness skills pt can use, today we practiced categories and walking. Pt stated she has been walking at night and that has been helpful. Pt receptive to working on keeping track of healthy habits she wants to get back into as well which included; cooking or baking, staying out of her room, walking, getting sunlight, taking a shower, and doing her makeup. This led to a discussion of giving self credit and focusing on dialectical rather than all or nothing thinking. Pt reports she can benefit from journaling her wins as well as journaling stressors. Pt shared she feels able to work on this as well as her exposure goals. Pt will be working on driving places after IOP and not engaging in the compulsion of watching OCD videos when she gets home. Risks/Concerns:: Pt denies any suicidal ideations, plan, or intent. Pt denies any thoughts of . Progress Toward Goals/Plan:: Pt is beginning to see some progress as she has been consistently attending IOP sessions, driving herself to IOP, and she is gaining more awareness of her intrusive thoughts and compulsions. Pt is consistent with homework and receptive to trying new skills. Pt's symptoms continue to impact her daily life, but she is seeing some resolve. Pt will continue IOP tx to prevent decompensation, gain distress tolerance, and improve daily functioning. Time Stopped:: 12:00
--- NOTE | 2024-04-11 09:05 | BH.SGPN.GN ---
Behaviors/Verbalizations/Mental Status: []? Eye contact is good. Motor activity is appropriate. Appearance is casual. Speech is Appropriate. Mood is euthymic. Affect is congruent. Thoughts are linear and logical. No evidence of psychosis. Reviewed daily check in sheet and no reports of suicidal ideations or intent? Client Response/Progress/Benefit: []? Pt engaged throughout, providing supportive feedback. Did well to identify mental health wins, which included feeling more confident in her ability to cope with increased sensory stimulation. Described having her 's family over which would normally be overwhelming. Shared use of self-compassion and taking breaks. Stressor noted as feeling guilty about not spending time with her 4 year old while in IOP. Did well to thought challenge this. Progress noted. Benefited from group support and encouragement. Recommended continued IOP tx to maintain mood stability, increase self-compassion, and prevent decompensation.? Narrative Note: []
--- NOTE | 2024-04-11 11:10 | BH.SGPN.GN ---
Behaviors/Verbalizations/Mental Status: [] Pt alert and oriented, casually dressed and groomed. Eye contact fair. Motor activity appropriate. Speech within normal limits. Affect congruent, mood anxious. Thoughts linear, logical, no signs of hallucinations or delusions. Client Response/Progress/Benefit: [] Pt responded well to session, engaged in the experiential activity and attentive throughout group processing. Interactive discussion with peers on what FOF has kept them from which included; trying new things, therapy, and medications as all as starting or ending relationships/jobs. Pt completed fear of failure worksheet and was able to identify thoughts and behaviors that reinforce personal fear of failure. Pt participated in small group discussion regarding strategies to overcome fear of failure. Identified struggling most with causing fear to make big decisions. Strategies to overcome FOF identified as normalizing taking steps back and accepting that somethings just don't work. ?Appeared to benefit from increased knowledge of strategies to combat fear of failure and gaining self-awareness. Pt will continue IOP to prevent decompensation/re-admissions to psych unit, decrease intrusive thoughts, and improve functioning. Narrative Note: []
== END 2024-04-12 23:59 ==
LOC: BHIOP 08:00
PROVIDERS: PCP Family Medicine; Referring Provider Psychiatry & Neurology Psychiatry; Visit Provider Psychiatry & Neurology Psychiatry
DX: F33.2 Major depressive disorder, recurrent severe without psychotic features (principal); F42.9 Obsessive-compulsive disorder, unspecified
CPT/HCPCS: S9480; 90834; 90837; 90853

== ENCOUNTER 2024-04-15 07:37 | Outpatient (RCR) | payer SELFPAY ==
--- NOTE | 2024-04-11 10:15 | BH.SGPN.GN ---
Behaviors/Verbalizations/Mental Status: []Pt alert and oriented, neatly dressed and groomed. Eye contact good. Motor activity appropriate. Speech within normal limits. Affect congruent, mood depressed and anxious. Thoughts linear, logical, no signs of hallucinations or delusions. Client Response/Progress/Benefit: [] Pt responded well to session, engaged in the experiential activity and attentive throughout group processing. Pt reported fear of failure has kept Pt from getting help and starting meds. Pt completed fear of failure worksheet and was able to identify thoughts and behaviors that reinforce personal fear of failure including negative self-talk, avoidance, and self-doubt. Pt participated in small group discussion regarding strategies to overcome fear of failure. Identified wanting to work on setting realistic goals and thinking in the brar. ?Appeared to benefit from increased knowledge of strategies to combat fear of failure and gaining self-awareness. Pt will continue IOP tx to prevent decompensation, improve daily functioning, and increase distress tolerance. Narrative Note: []
[2024-04-13 02:46] VITALS: BP 150/70; PULSE 79
--- NOTE | 2024-04-15 09:00 | BH.SGPN.GN ---
Behaviors/Verbalizations/Mental Status: [] Eye contact is good. Motor activity is appropriate. Appearance is casual. Speech is Appropriate. Mood is anxious. Affect is congruent. Thoughts are linear and logical. No evidence of psychosis. Reviewed daily check in sheet and pt reports 1/5 for suicidal ideations and 0/5 for intent. Client Response/Progress/Benefit: [] Pt participated at times during the group discussions. Attentive. Daily symptom tracker notes 2/5 for depression and 1/5 for anxiety.. According to pt she continues to participated in exposure goals for her anxiety, intrusive thoughts, and OCD. ? I?m sitting with the uncomfortable?. Emotion is ?exhausted?. While she is seeing benefits from exposure she admits that it very tiring. Proud of herself for not following through with her compulsions. Progress noted. Benefited from group support, encouragement, and feedback. Will continue in IOP to maintain safety, decrease intrusive thoughts, and improve functioning. Narrative Note: []
--- NOTE | 2024-04-15 10:10 | BH.SGPN.GN ---
Behaviors/Verbalizations/Mental Status: [] Eye contact is good. Motor activity is appropriate. Appearance is casual. Speech is Appropriate. Mood is euthymic. Affect is congruent. Thoughts are linear and logical. No evidence of psychosis. Client Response/Progress/Benefit: [] Pt was an active participant in group discussions. Attentive during psychoeducation on the 4 communication styles (Passive, Passive-Aggressive, Aggressive, and Assertive) and the obstacles to effective communication. Contributed during interactive discussion on the benefits of communicating effectively. Worked well with peers to identify the benefits and disadvantages to the different communication styles. Pt gave examples of how she uses different communication styles based on who she is interacting with. Pt stated she can see the impact of how each communication style can have on her relationships and her own mental health. Benefited from increased understanding of communication styles and how these can impact effective communication. Will continue in IOP to continue use of healthy coping skills, continue working on exposure goals, and prevent decompensation.
--- NOTE | 2024-04-16 09:00 | BH.SGPN.GN ---
Behaviors/Verbalizations/Mental Status: [] Eye contact is good. Motor activity is appropriate. Appearance is casual. Speech is Appropriate. Mood is anxious and content. Affect is congruent. Thoughts are linear and logical. No evidence of psychosis. Reviewed daily check in sheet and no reports of suicidal ideations or intent. Client Response/Progress/Benefit: [] Pt was an active participant in group discussions. Attentive. Did well to identify 2 mental health wins. Wins included coming to group today on her own, explaining that she has been working on better managing her driving anxiety. Additional win noted as using opposite action to cook larder last night. Stressor reported as struggling with guilt for being in group rather than at home with her young daughter. Receptive of and appearing to benefit from group support and challenging pt to give herself credit for doing what?s in her control to help herself now in order to be better for her daughter long-term. Benefited from group support, encouragement, and feedback. Will continue in IOP to prevent decompensation, promote mood stability, and increase consistent use of healthy coping. Narrative Note: []
--- NOTE | 2024-04-16 10:15 | BH.SGPN.GN ---
Behaviors/Verbalizations/Mental Status: []Pt alert and oriented, casually dressed and groomed. Eye contact good. Motor activity appropriate. Speech within normal limits. Affect congruent, mood depressed. Thoughts linear, logical, no signs of hallucinations or delusions. Client Response/Progress/Benefit: [] Pt responded well to session, attentive and engaged. Group participated in the discussion defining stigma as well as what stigma has kept pt's from doing in their lives. Pt stated mental health stigma has kept pt from accepting help, taking medications, and getting more treatment. Pt worked with peers to begin discussion of what reinforces stigma, both socially and internally, and this was discussed further in the next group. Pt appeared to benefit from learning about the different types of stigma as well as gaining awareness of how stigma has personally impacted pt. Pt will continue IOP tx to prevent decompensation, improve daily functioning, and increase distress tolerance skills. ? Narrative Note: []
--- NOTE | 2024-04-16 11:15 | BH.SGPN.GN ---
Behaviors/Verbalizations/Mental Status: []Pt alert and oriented, casually dressed and groomed. Eye contact good. Motor activity appropriate. Speech within normal limits. Affect congruent, mood anxious. Thoughts linear, logical, no signs of hallucinations or delusions. Client Response/Progress/Benefit: [] Pt engaged participant AEB participating in the activity, providing input during small group discussion, and listening attentively to others. Pt appeared to connect with discussion in the benefits of addressing mental health stigma which included: improved relationships, increased willingness to seek help, increased happiness, and improved confidence. Group brainstormed strategies to combat social and perceived stigma. Pt identified that they contribute to stigma by using negative mental health labels and joking about it. Pt shared one thing pt can do to open up to at least one person about her mental health. Appeared to benefit from increasing awareness of strategies to combat stigma. Pt is to continue IOP to continue working on anxiety exposure goals, challenge distortions, and prevent decompensation.
--- NOTE | 2024-04-16 16:04 | BH.MDN_ITS ---
Multi-Disciplinary Note Note 30-min Individual: Time Started:: 12:15 Date: 04/16/24 Purpose of session/treatment goals addressed:: To work on pt's ERP goals and to review progress/gains. Eye Contact:: Good Motor Activity:: Appropriate Appearance:: Neat Speech:: Appropriate Mood:: Euthymic and Anxious Affect:: Bright and Congruent Thoughts:: Linear, Racing, Other (pt seeking reassurance at times) and No evidence of hallucinations/delusions noted Staff Interventions:: CBT techniques, mindfulness skills, strengths perspective, goal setting and other (distress tolerance skills, acceptance skills, reviewed homework from last session, set ERP goals for the week.) Client Response:: Pt responded well to session, open to meeting with therapist. Pt reports feeling better and pt expressed feeling proud of herself for being able to accomplish behavioral activation goals as well as her ERP goals. Pt completed her ERP log and pt reported she now has no anxiety when she drives by herself which pt reported has given her hope that this could actually work. Pt noted that in addition to driving, so has also reduced compulsions at home including cutting out reddit completely and reducing how often/how long she watches OCD related videos. Pt shared she has begun to worry that I have so many compulsions and I seek reassurance so much but pt responded well to therapist providing forbes mind statements and discussion on accepting uncertainty . Pt responded well to setting new ERP goals for the week which this week pt will go to her mothers three times. Pt has been avoiding her mother's house since her OCD got bad because she has knives there and what if I use them to hurt myself or someone. Pt is very close with her family so this causes a lot of distress. Pt reported this goal produces a SARINA of 4-5 out of 10 (10 being the max). Pt reviewed calming skills she can use while she is there as well as things she can do to prevent engaging in compulsions after. Pt also encouraged to continue working on her driving to ensure that pt can maintain progress. Pt will see therapist on 04/18/24. Risks/Concerns:: Pt denies any suicidal ideations, plan, or intent. Pt denies any thoughts of . Progress Toward Goals/Plan:: Pt is making progress towards her tx goals AEB pt's self-report of reduced engagement in compulsions, reduced crying and isolation, and improving ability to manage intrusive thoughts. Pt reports belief that her medication is helping and pt is seeing benefits from the work she is doing with her fear ladder. Pt is still not functioning at her baseline as pt is still unable to use knives, be around large knives, and has been avoiding certain places with knives, but pt is working on this. Pt will continue IOP tx to promote gains, reduce negative self-talk, and improve distress tolerance skills. Time Stopped:: 12:45
--- NOTE | 2024-04-18 10:01 | BH.MDN_ITS ---
Multi-Disciplinary Note Note 45-min Individual: Time Started:: 09:15 Date: 04/18/24 Purpose of session/treatment goals addressed:: To work on goal #1 of pt's tx plan. Eye Contact:: Good Motor Activity:: Appropriate Appearance:: Casual Speech:: Appropriate Mood:: Anxious, Depressed and Other (hopeful) Affect:: Congruent Thoughts:: Linear, Logical and No evidence of hallucinations/delusions noted Staff Interventions:: thought challenging, CBT techniques, mindfulness skills, strengths perspective, goal setting, taught coping skills and other Client Response:: Pt responded well to session, open to meeting with therapist. Pt went to her mother's house yesterday to work on her ERP goal and to spend time with her mother and sisters. Pt shared it was harder than I thought, maybe 5 hours is too long. Pt stated that she was doing well for the first few hours, but then pt became exhausted and needed to go home. Pt reported feeling some guilt for not being there as long but pt was able to combat this. Pt gave herself credit for going and facing her fears. Pt plans to return to mom's house this Monday to continue working on her exposure, but this time pt plans to only be there for a few hours. Pt stated she has been catching her intrusive thoughts more now that she has awareness. Pt has a name for her intrusive thoughts, Brit, and this helps pt separate herself from her OCD and at times make light of a difficult situation. Pt sought reassurance from therapist at times, but she did well with therapist redirecting. Pt feels that she is making progress and noted that she has been able to drive herself with very little anxiety. Pt is also becoming less anxious when she goes places alone. Risks/Concerns:: Pt denies any suicidal ideations, plan, or intent. Pt denies any thoughts of . Progress Toward Goals/Plan:: Pt is making progress towards her tx goals AEB pt's self-report of reduced engagement in compulsions, reduced crying and isolation, and improving ability to manage intrusive thoughts. Pt reports belief that her medication is helping and pt is seeing benefits from the work she is doing with her fear ladder. Pt does feel that she pushed herself too hard yesterday with her fear ladder exposure and stayed too long at her mother's house. Pt will adjust the length of time, but she is encouraged to continue working on this. Pt will continue IOP tx to promote gains, reduce negative self- talk, and improve distress tolerance skills. Time Stopped:: 09:55
--- NOTE | 2024-04-18 10:10 | BH.SGPN.GN ---
Behaviors/Verbalizations/Mental Status: [] Pt alert and oriented, casually dressed and groomed. Eye contact good. Motor activity appropriate. Speech within normal limits. Mood is anxious. Affect is congruent. Thoughts linear, logical, no signs of hallucinations or delusions. Client Response/Progress/Benefit: [] Pt was an active?participant in group discussions and experiential activity. Worked with peers to identify benefits of healthy relationships which included; support, shared experiences, laughter, understanding, and the ability to challenge us. Group identified factors that lead to unhealthy relationships which included; fear, loneliness, low self-esteem, need to be liked, and societal expectations. Benefited from increased insight and awareness of benefits of healthy relationships and factors that contribute to unhealthy relationships. Will continue IOP to prevent decompensation/re-admission to psych unit, decrease intrusive thoughts, increase healthy coping skills, and improve functioning. Narrative Note: []
--- NOTE | 2024-04-18 11:05 | BH.SGPN.GN ---
Behaviors/Verbalizations/Mental Status: [] Pt alert and oriented, casually dressed and groomed. Eye contact good. Motor activity appropriate. Speech within normal limits. Affect full, mood euthymic and anxious. Thoughts linear, logical, no signs of hallucinations or delusions. Client Response/Progress/Benefit: [] Pt responded well to session, engaged and taking notes throughout. Worked with group to connect components of the experiential activity with characteristics of healthy and unhealthy relationships. Attentive during psychoeducation about characteristics of healthy, unhealthy, and abusive relationships. Pt reported pt is better with communicating and enjoying personal time which used to be hard for pt in the past. However, pt reported pt can work on letting go of needing control by letting her kids load the shank boner and letting her fold the towels. Appeared to benefit from identifying current healthy relationship attributes and an area Pt wants to work on to build healthier relationships. Pt to continue IOP tx to prevent decompensation, improve daily functioning, and increase distress tolerance. ? Narrative Note: []
--- NOTE | 2024-04-19 09:05 | BH.SGPN.GN ---
Behaviors/Verbalizations/Mental Status: [] Eye contact is good. Motor activity is appropriate. Appearance is casual. Speech is Appropriate. Mood is dysthymic and anxious. Affect is congruent. Thoughts are linear and logical. No evidence of psychosis. Reviewed daily check in sheet and no reports of suicidal ideations or intent. Client Response/Progress/Benefit: [] Pt participated at times during the group discussion. Attentive. Daily symptom tracker notes 3/5 for depression and 2/5 for anxiety. SI-1. Continues to work daily on exposure goals and resisting compulsions. Seeing benefit however reports that ?its exhausting?. Grieving her life before her intrusive thoughts. She is focusing thoughts towards learning new hobbies to engage her mind which has had benefits. Progress noted. Benefited from group support, encouragement, and feedback. Will continue in IOP to maintain safety, prevent decompensation/re-admission, and to improve functioning. Narrative Note: []
--- NOTE | 2024-04-19 10:10 | BH.SGPN.GN ---
Behaviors/Verbalizations/Mental Status: [] Eye contact is good. Motor activity is appropriate. Appearance is casual. Speech is Appropriate. Mood is content. Affect is congruent. Thoughts are linear and logical. No evidence of psychosis. Client Response/Progress/Benefit: [] Pt receptive of session, actively engaged throughout AEB taking notes, providing input, and contributing in group discussion. Appeared to connect with group topic of automatic thoughts and cognitive distortions, as well as the impact of thought patterns on mental health, coping behaviors, and relationships. This particular group is very heavy on psychoeducation and pt appeared to connect with distortions and how they can impact functioning. Identified struggling with the jumping to conclusions distortion indicating they are a very negative person. Pt appeared to benefit from gaining insight on distorted thinking patterns and how this impacts overall mental health. Will continue IOP to increase skills to combat anxiety and prevent decompensation. Narrative Note: [] Behaviors/Verbalizations/Mental Status: [] Eye contact is good. Motor activity is appropriate. Appearance is casual. Speech is Appropriate. Mood is content. Affect is congruent. Thoughts are linear and logical. No evidence of psychosis. Client Response/Progress/Benefit: [] Pt receptive of session, actively engaged throughout AEB taking notes, providing input, and contributing in group discussion. Appeared to connect with group topic of automatic thoughts and cognitive distortions, as well as the impact of thought patterns on mental health, coping behaviors, and relationships. This particular group is very heavy on psychoeducation and pt appeared to connect with distortions and how they can impact functioning. Identified struggling with the jumping to conclusions distortion indicating they are a very negative person. Pt appeared to benefit from gaining insight on distorted thinking patterns and how this impacts overall mental health. Will continue IOP to increase skills to combat anxiety and prevent decompensation. Narrative Note: []
--- NOTE | 2024-04-19 11:12 | BH.SGPN.GN ---
Behaviors/Verbalizations/Mental Status: [] Eye contact is good. Motor activity is appropriate. Appearance is casual. Speech is Appropriate. Mood is content. Affect is congruent. Thoughts are linear and logical. No evidence of psychosis. Client Response/Progress/Benefit: [] Pt was an active participant during group discussion. Pt was placed in a smaller group for activity and participated in identifying/combatting example distortions with peers. Pt was engaged in the smaller group, participated in group interactions to brainstorm answers, and appeared to be comprehending cognitive distortions. Pt stated could connect with many of the distortions covered in group. Benefited from gaining further insight and awareness of cognitive distortions as well as practicing ways to reframe and challenge thoughts. Will continue in IOP tx to improve outlook, increase self worth, and prevent decompensation. Narrative Note: []
--- NOTE | 2024-04-22 09:00 | BH.SGPN.GN ---
Behaviors/Verbalizations/Mental Status: [] Eye contact is good. Motor activity is appropriate. Appearance is casual. Speech is Appropriate. Mood is anxious. Affect is congruent. Thoughts are linear and logical. No evidence of psychosis. Reviewed daily check in sheet and pt reports 1/5 for suicidal thoughts and o/5 for intent. This has been baseline. Client Response/Progress/Benefit: [] Pt participated when prompted. Attentive. Daily symptom tracker notes 3/5 for depression and 1/5 for anxiety. States ? I baked yesterday? which is something that she has not done in ? a long time?. Also reports that she drove herself her today with ? no anxiety? which is significant progress as she was unable to drive herself anywhere her first week in IOP. The progress she is making with her intrusive thoughts and OCD has been ?encouraging?. Progress noted. Benefited from group support, encouragement, and feedback. Will continue in IOP to prevent decompensation/re-admission to psych unit, decrease intrusive thoughts, and improve functioning Narrative Note: []
--- NOTE | 2024-04-22 10:15 | BH.SGPN.GN ---
Behaviors/Verbalizations/Mental Status: []Client alert and oriented, casually dressed and groomed. Eye contact good. Motor activity appropriate. Speech within normal limits. Affect congruent, mood anxious. Thoughts linear, logical, no signs of hallucinations or delusions. Client Response/Progress/Benefit: [] Pt was an active participant AEB taking notes and engaging in group activity. Connected with the topic of pitfalls and listened to group discussion on barriers that prevent from choosing a healthier path to mental wellness. Group worked together to identify examples of personal pitfalls. These examples included; shutting down, not asking for help, negative thinking patterns, avoidance, and isolation. Pt benefited from group as Pt learned to better identify potential barriers to improving mental health symptoms. Pt will continue IOP tx to increase distress tolerance, improve daily functioning, and continue working on ERP goals. Narrative Note: []
--- NOTE | 2024-04-22 11:15 | BH.SGPN.GN ---
Behaviors/Verbalizations/Mental Status: []Client alert and oriented, casually dressed and groomed. Eye contact good. Motor activity appropriate. Speech within normal limits. Affect congruent, mood content and anxious. Thoughts linear, logical, no signs of hallucinations or delusions. Client Response/Progress/Benefit: [] Pt receptive of session, engaged throughout AEB Pt actively listening and contributing to discussion as well as taking notes.? Pt participated in the experiential activity and did well to communicate ideas with peers and manage emotions. Pt attentive as group processed how the emotions and perspective of the group impacted the activity. Group worked together to identify different coping skills to help manage pitfalls. Pt identified a pitfall they struggle with as avoidance of anything she perceives as painful. Pt plans to work on their pitfall by taking small steps to begin opposite action to sit with the uncomfortable daily. Benefited from identifying personal pitfalls and strategies to overcome these pitfalls. Pt will continue IOP tx to prevent decompensation, improve daily functioning, and gain skills to improve mood stability. Narrative Note: []
--- NOTE | 2024-04-22 15:44 | BH.MDN_ITS ---
Multi-Disciplinary Note Note 45-min Individual: Time Started:: 12:00 Date: 04/22/24 Purpose of session/treatment goals addressed:: To address negative self- talk, review ERP goals, and problem-solve barriers. Another goal was to discuss upcoming family session. Eye Contact:: Good Motor Activity:: Appropriate Appearance:: Neat and Casual Speech:: Appropriate Mood:: Euthymic and Anxious Affect:: Congruent Thoughts:: Linear, Logical, Circular and Other (reassurance seeking) Staff Interventions:: thought challenging, motivational interviewing, CBT techniques, mindfulness skills, strengths perspective, goal setting and taught coping skills Client Response:: Pt responded well to session, open to meeting with therapist. Pt reports feeling somewhat down today as pt is doubting herself, but due to recent exposure goals. Pt stated that over the weekend she went to her mother's house which was part of pt's fear ladder. The first time pt went she was very anxious and pt assumed she would feel this way again, but pt felt like no anxiety. Discussed what could have contributed to this shift, and discovered that the first time pt went to her mother's she was alone and over the weekend when she went she was with her both times. Pt gained awareness of the subtle ways that she seeks and gets reassurance, and pt recognized that just having her with her gives her enough assurance that she will not act on her OCD that her anxiety is significantly lower when faced with triggers. This helped pt combat self-doubt and set new goals for the week. Pt plans to go to her mothers alone twice this week for a few hours. Pt is doing well in other areas as pt is consistent with her healthy habits, she is not engaging in many of her compulsions, and she is working on her fear ladder goals. Pt and her will be in for a family session on Monday to review pt progress, discuss ERP, and review ways to reduce reassurance seeking. Risks/Concerns:: Pt denies any suicidal ideations, plan, or intent. Pt denies any thoughts of . Progress Toward Goals/Plan:: Pt continues to make progress towards her IOP goals despite pt's report of feeling like she did not do her exposure goals well recently. Pt continues to reduce her engagement in compulsions and her mood is much less depressed than it was two weeks ago. Pt gained insight today that she will need to do her ERP goals without her safe person which is her , to get the full effect and benefit. Pt will be bringing in her on 04/24/24 for a family session to go over progress, ERP goals, and strategies. Pt will continue IOP tx to promote mood stability, increase distress tolerance, and improve daily functioning. Time Stopped:: 12:45
--- NOTE | 2024-04-24 10:10 | BH.SGPN.GN ---
Behaviors/Verbalizations/Mental Status: [] Eye contact is good. Motor activity is appropriate. Appearance is casual. Speech is Appropriate. Mood is anxious. Affect is congruent. Thoughts are linear and logical. No evidence of psychosis. Client Response/Progress/Benefit: [] Pt was engaged and participated at times, providing input and taking notes. Attentive during psychoeducation on anxiety and cognitive triangle. Participated in an interactive discussion on defining anxiety and identifying cognitive and physiological symptoms of anxiety. The group discussed the role of anxiety on isolation, avoidance, and overall functioning. Pt identified their physical/physiological signs of anxiety which includes: vomiting, lump in throat, shaking, heart racing, and brain fog. Benefited from increased awareness and insight on anxiety and its impact. Will continue in IOP to prevent decompensation/re-admission to psych unit, decrease intrusive thoughts, and improve functioning. Narrative Note: []
--- NOTE | 2024-04-24 10:45 | BH.MDN ---
Multi-Disciplinary Note Note Family: Time Started:: 09:10 Date: 04/24/24 Purpose of session/treatment goals addressed:: To bring in pt's support person (her ) to provide psychoeducation and promote pt wellness. Eye Contact:: Good Motor Activity:: Appropriate Appearance:: Neat Speech:: Appropriate Mood:: Euthymic and Anxious Affect:: Full Thoughts:: Linear, Logical and No evidence of hallucinations/delusions noted Staff Interventions:: thought challenging, psychoeducation on: (ERP and providing support for someone with OCD), CBT techniques, mindfulness skills, strengths perspective and goal setting Client Response:: Pt responded well to session, open to meeting with therapist. Pt's is also present and reports he is hoping to learn more on how to her Pt. Started session with identifying what pt is currently doing well and this gave pt and her an opportunity to reflect on pt's growth. Pt and feel that pt is isolating less and she is also not seeking as much reassurance. Pt reports she is still getting aware of the ways she seeks reassurance from others and pt's reported they are working on not feeding into it. Pt shared she has been noticing lately that she will seek reassurance by asking do you think I'm doing this right in regards to her exposure goals. Pt and wanted to know what the balance is between giving comfort and getting reassurance. This led to a discussion on using calming skills and healthy distractions before asking her a question. Another way pt can receive support without reassurance is reminding pt of her progress and asking pt to tell herself what would be helpful. Reviewed forbes mind as well as ways to dismiss intrusive thoughts. Pt is currently working on going to her mother's house for exposure, but pt noticed that last week she went and did not have anxiety due to her being with her. Pt will try this goal again without her . Risks/Concerns:: Pt denies any suicidal ideations, plan, or intent. Pt denies any thoughts of . Progress Toward Goals/Plan:: Pt continues to make progress towards her IOP goals despite pt's report of feeling like she did not do her exposure goals well recently. Pt continues to reduce her engagement in compulsions and her mood is much less depressed than it was two weeks ago. Pt's confirms that pt is making progress at home with her reduction in compulsions and less isolation. Pt's appears to be doing a good job recognizing pt's reassurance seeking and they are working on not feeding into this. Pt will continue IOP tx to promote mood stability, increase distress tolerance, and improve daily functioning. Time Stopped:: 10:00
--- NOTE | 2024-04-24 11:10 | BH.SGPN.GN ---
Behaviors/Verbalizations/Mental Status: []Pt alert and oriented, casually dressed and groomed. Eye contact good. Motor activity appropriate. Speech within normal limits. Affect congruent, mood anxious and euthymic. Thoughts linear, logical, no signs of hallucinations or delusions. Client Response/Progress/Benefit: [] Pt was an active participant AEB pt providing input and listening attentively to peers. Attentive during psychoeducation on mindfulness coping skills and their impact on reducing anxiety and improving overall mental health wellness. Group was able to identify self-soothing and mind-based coping skills which included: 5-senses, meditation, deep breathing, TIPP, thought challenging, categories, and progressive muscle relaxation. Pt also participated with peers in practicing mindfulness skills in session including deep breathing. Pt would like to work on belly breathing and mindfulness to manage anxiety. Appeared to benefit from increasing repertoire of anxiety reduction skills. Pt will continue IOP to continue working on anxiety exposure goals, challenge distortions, and prevent decompensation.
--- NOTE | 2024-04-24 12:04 | PCM.BH.PN ---
Progress Note Progress Note: History of Present Illness/Interim History: The patient is a 34-year-old female with a history of depression and OCD who is seen in follow-up at the [facility] behavioral health [facility]. I last saw the patient 2-1/2 weeks ago and at that time no medication changes were made. The patient states that her mood is better and she is significantly only less depressed than before but she feels still she is not happy. She has occasional hopelessness and some worsening of anxiety at times. She does state that she besides doing this IOP she is doing exposure and response prevention therapy for her OCD and is exhausting and stressful. She is able to drive again with no anxiety after doing the exposure and response prevention therapy she states. She complains of some increased belching and increased appetite prior to starting the Abilify which she thinks is due either to gabapentin or Lamictal. She feels that the gabapentin makes her feel drunk when she takes it at night to help with sleep. She denies passive thoughts of , suicidal ideation, plan for suicide, homicidal ideation, hallucinations or delusions. Some ego-dystonic thoughts that are intrusive still exist from her OCD involving thoughts of self-harm, suspicion of being a pedophile and other negative thoughts that she is working on with her ERP therapist. Current Psychiatric Medications: [] Lamictal 50 mg p.o. daily; gabapentin 300 mg p.o. nightly; Abilify 2 mg p.o. daily (times 3+ weeks). Mental Status Examination: [] The patient is a 34-year-old female who appears normal for stated age and is casually dressed and groomed with good hygiene. She has no psychomotor agitation or retardation and is ambulatory with a normal gait. She is cooperative during the interview. Speech is normal rate and rhythm and fluent with no pressure and eye contact is good. Mood is anxious. Affect is minimally constricted. Thought process is goal-directed and organized. Thought content: There is no evidence of passive thoughts of , suicidal ideation, plan for suicide, homicidal ideation, hallucinations or delusions. Bo good dystonic intrusive thoughts remain as described in the present illness. Reality testing is intact. Judgment is intact. Insight is good. Impulsivity low. Diagnoses: [] 1. Major depressive disorder, recurrent, moderate 2. OCD 3. Primary support and work issues Plan: [] The patient will continue the IOP at [facility] as the structure, support, education and group therapy will hopefully prevent worsening of the patient's symptoms. The risk, options, possible complications and side effects of medications were discussed with the patient and she understands and accepts these. Due to her complaint of possible side effects from gabapentin she and the fact that it makes her feel drunk she agrees to discontinue the gabapentin. She agrees to try BuSpar to help with her anxiety at 5 mg p.o. twice daily and prescription is sent in for this. She will continue to follow-up with her outpatient providers and I will see the patient in follow-up in 2 weeks.
--- NOTE | 2024-04-24 14:39 | BH.MTP_ITS ---
Treatment Plan Review Demographics Date of Admission:: 04/01/24 Date of Treatment Plan Review:: 04/24/24 Admitting Diagnoses:: Major depressive disorder, recurrent, severe without psychosis F33.2; OCD Current Diagnoses:: Major depressive disorder, recurrent, severe without psychosis F33.2; OCD Patient Status Patient's Response to Treatment:: Pt has responded well to session AEB consistently attending IOP and engaging in both individual and group therapy sessions. Pt consistently completes homework provided from individual counseling. Pt contributes actively during group discussions, takes notes, ap pears to listen to others, and engages in group activities. Pt's overall DSM-5 scores have decreased by 40% since admission and she reports finding benefit from the coping skills so far. Pt is working on ERP so her OCD symptoms have not yet decreased as pt is engaging in a lot of exposure and trying not to engage in compulsions. Status of Current Problems and Symptoms: Pt's OCD symptoms continue to be severe per her DSM-5 report. Pt is still avoiding houses (her mothers and mother in law's) due to there being knives there. Pt is still not able to have knives in the kitchen at home due to her intrusive thoughts that she would use them to hurt herself or others. Pt feels that learning about OCD has been helpful. Pt is still depressed and has negative thoughts about her slow progress and this being my life. Pt often compares herself to how she used to function which leads to crying spells and hopelessness. Progress Problem #1: Problem Name:: OCD and overall anxiety Status of Goals:: Objective 1- in progress. Pt is currently working on her ERP/fear ladder and sets weekly goals. Pt has been working on driving alone, going places by herself after IOP, and she will work on exposing herself to knives. Objective 2- in progress. Pt can identify her triggers and she has more awareness of her intrusive thoughts and what reinforces these. Pt?s anxiety has decreased by 30% since admission, but her OCD symptoms have not yet decreased. Team Recommendations:: Treatment team encourages pt to continue working on distress tolerance skills, reducing reassurance seeking, grounding skills, and tracking progress. Problem #2: Problem Name:: Depression, negative thinking, and isolation Status of Goals:: Objective 1- complete with ongoing work encouraged. Pt?s depression has decreased by 50% since admission due to pt using opposite action, talking with support, and getting back into hobbies. Pt is working on self-talk. Pt?s depression tends to worsen the week after her menstrual cycle. Objective 2- in progress. Pt is working on getting back into cooking, walking, getting sunlight, and staying out of her bedroom. Team Recommendations:: Team recommends continued goals and objectives to reinforce skills and reduce symptoms. Team recommends pt continue working on combating distortions, being more self-compassionate, and practicing dialectical thinking.
--- NOTE | 2024-04-25 09:05 | BH.SGPN.GN ---
Behaviors/Verbalizations/Mental Status: [] Pt alert and oriented, neatly dressed and groomed. Eye contact good. Motor activity appropriate. Speech within normal limits. Affect constricted, mood depressed. Thoughts linear, logical, no signs of hallucinations or delusions. Reviewed pt?s symptom tracker, no risk for suicidal ideation, plan, or intent 04/25/24. Client Response/Progress/Benefit: []Pt was an active participant in group discussions. Attentive. Able to identify mental health wins including getting to group today even though she was depressed and still gardening despite feeling low. Pt's stressor today is I went so far down the depression hole and I keep thinking how is this my life. Pt stated feeling sad and depressed this morning. Pt receptive to feedback from peers which pt reported was helpful. Progress noted. Benefited from group support, encouragement, and feedback. Will continue in IOP to prevent decompensation, improve distress tolerance skills, and improve daily functioning. Narrative Note: []
--- NOTE | 2024-04-25 10:15 | BH.SGPN.GN ---
Behaviors/Verbalizations/Mental Status: [] Eye contact is good. Motor activity is appropriate. Appearance is casual. Speech is Appropriate. Mood is anxious and depressed. Affect is congruent. Thoughts are linear and logical. No evidence of psychosis Client Response/Progress/Benefit: [] Pt engaged in session AEB listening attentively to others, however did not participate in group discussions. Pt engaged in activity, able to connect how it can be uncomfortable and difficult to practice acceptance when situations are out of one?s own control. Attentive as peers defined acceptance and identified the benefits that acceptance can bring. Benefits included; reduce stuckness, reduced stress, helps one to focus on situations we can change, and decreased negative self-talk. Seemed to benefit from increased awareness of the meaning as well as the importance of acceptance. Will continue in IOP to prevent decompensation, decrease intrusive thoughts/compulsions, and improve functioning. Narrative Note: []
--- NOTE | 2024-04-29 09:05 | BH.SGPN.GN ---
Behaviors/Verbalizations/Mental Status: [] Eye contact is good. Motor activity is appropriate. Appearance is casual. Speech is Appropriate. Mood is anxious and depressed. Affect is congruent. Thoughts are linear and logical. No evidence of psychosis. Reviewed daily check in sheet and no reports of suicidal ideations or intent. Client Response/Progress/Benefit: [] Pt participated when prompted. Emotion today is ?blah?. Continues to work on exposure goals. ? I haven?t given up?. Proud of herself for going to [employer] with her son so he could shop. This is significant progress however feels as if she is constantly challenging her intrusive thoughts. Poor sleep as well in the past few days as she is waking up at 3am. Slight regression. Benefited from group support, encouragement, and feedback. Will continue in IOP to prevent decompensation, decrease intrusive thoughts, and improve functioning. Narrative Note: []
--- NOTE | 2024-04-29 11:05 | BH.SGPN.GN ---
Behaviors/Verbalizations/Mental Status: []Eye contact is good. Motor activity is appropriate. Appearance is casual. Speech is Appropriate. Mood is anxious. Affect is congruent. Thoughts are linear and logical. No evidence of psychosis. Client Response/Progress/Benefit: []Pt was an active participant in group discussion. Engaged and attentive during psychoeducation and interactive discussion on coping skills, why people use unhealthy coping skills, how to replace unhealthy coping skills, and internal vs external coping skills. Attentive as peers came up with list of unhealthy coping skills. Pt reported personally, they tend to either ruminate or nap to avoid. Group discussed the effects of maladaptive coping skills on mental health. Benefited from increased understanding of unhealthy coping skills and the need for developing healthy internal and external coping skills. Actively participated during experiential group activity and was able to related this activity to group topic. Will continue in IOP to continue to promote healthy thinking patterns, consistently apply healthy coping skills, and promote mood stability. Narrative Note: []
--- NOTE | 2024-04-29 11:15 | BH.SGPN.GN ---
Behaviors/Verbalizations/Mental Status: []Pt alert and oriented, casually dressed and groomed. Eye contact good. Motor activity appropriate. Speech within normal limits. Affect congruent, mood depressed. Thoughts linear, logical, no signs of hallucinations or delusions. Client Response/Progress/Benefit: [] Pt responded well to session, taking notes and contributing when prompted. Group discussed the different categories of coping skills which included distraction, emotional release, grounding, self-love, and thought challenging. Pt participated in creating a coping skills ?menu? from the different categories of coping skills. Pt's coping skill menu included: arts and crafts, gardening, setting boundaries, reality testing, and cognitive diffusion. Appeared to benefit from increasing their repertoire of healthy coping skills. Will continue IOP to prevent decompensation, improve daily functioning, and reduce compulsions. Narrative Note: []
--- NOTE | 2024-04-30 09:05 | BH.SGPN.GN ---
Behaviors/Verbalizations/Mental Status: []Pt alert and oriented, neatly dressed and groomed. Eye contact good. Motor activity appropriate. Speech within normal limits. Affect congruent, mood hopeful. Thoughts linear, logical, no signs of hallucinations or delusions. Client Response/Progress/Benefit: []Pt was an active participant in group discussions. Attentive. Able to identify mental health wins including not staying stuck yesterday by using opposite action to shower and clean which helped pt?s perspective. Pt's stressor today is ?I cried a lot yesterday and I was really down on myself.? Pt is feeling a little hopeful? this morning. Pt receptive to feedback from peers which pt reported was helpful. Progress noted. Benefited from group support, encouragement, and feedback. Will continue in IOP to reduce intrusive thoughts, improve self-confidence, and reduce avoidance. Narrative Note: []
--- NOTE | 2024-04-30 10:10 | BH.SGPN.GN ---
Behaviors/Verbalizations/Mental Status: [] Eye contact is good. Motor activity is appropriate. Appearance is casual. Speech is Appropriate. Mood is euthymic. Affect is congruent. Thoughts are linear and logical. No evidence of psychosis. Client Response/Progress/Benefit: [] Client was an active participant during interactive group discussions. Attentive during psychoeducation on the six types of boundaries (physical, emotional, intellectual, sexual, time, and material) AEB note-taking and providing input. Along with peers contributed to interactive discussion on defining what a boundary is in mental health. Client along with peers identified challenges to setting boundaries which included; fear of other's response, guilt, fear of rejection, being a people pleaser, not knowing that a boundary needs to be set, etc. Client along with peers identified the benefits to setting boundaries such as better relationships, increased time for self-care, and increased confidence, and feeling more heard. Group discussed the mental health benefits to establishing boundaries at work, school, and home. Group members filled out self assessment of their boundary setting. Client benefited from increased awareness and insight on the importance/benefit to setting health boundaries. Will continue in IOP to stabilize anxiety, and increase ability to regulate emotions. Narrative Note: []
--- NOTE | 2024-04-30 14:31 | BH.MDN_ITS ---
Multi-Disciplinary Note Note 45-min Individual: Time Started:: 11:20 Date: 04/30/24 Purpose of session/treatment goals addressed:: To work on goal #2 of pt's tx plan. 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 Pt reports she is not doing well today and that she feels like she is the most depressed I've been and is this normal. Pt recognizes she is seeking reassurance and responded well to boundary. Pt processed her emotions and it came to light that within the last week pt had her period (pt has PMDD), her had to go to work and got pulled over, her in laws were upset with pt and her , and pt's daughter was sobbing this morning. Pt is quick to have all or nothing thoughts and assumptions, so looking at all the contributing factors that led to her mood shift helped pt combat her all or nothing thoughts. Pt was encouraged to look through her journal where pt is keeping track of her progress and accomplishments as well as saying positive affirmations this week. Pt shared part of what is contributing to her depression is self-judgment over what she is unable to do vs what she used to be able to do easily. Pt receptive to working on being more assertive and delegating chores as well as writing out smaller goals like cleaning the couch instead of the entire living room. Pt receptive to working on coloring tonight as well. Pt reported after challenging her perspective she felt better. Risks/Concerns:: Pt denies any active SI, plan, or intent as of 04/30/24. Progress Toward Goals/Plan:: Pt reports worsening symptoms of depression this week which pt can identify associate with PMDD. Pt's perspective on her progress and her thoughts towards herself were very negative today, but pt was able to challenge this with the help of therapist. Pt reported she is more receptive to the idea of a low dose of control which was recommended by Dr. Hernandez to help pt with her PMDD symptoms. Pt also willing to work on the goals discussed today and pt shared she felt better after session. Pt will continue IOP tx to help pt increase self-confidence and resilience while improving daily functioning. Time Stopped:: 12:00
--- NOTE | 2024-05-03 09:05 | BH.SGPN.GN ---
Behaviors/Verbalizations/Mental Status: [] Eye contact is good. Motor activity is appropriate. Appearance is casual. Speech is Appropriate. Mood is depressed. Affect is flat. Thoughts are linear and logical. No evidence of psychosis. Reviewed daily check in sheet and pt reports 1/5 for suicidal thoughts and 0/5 for intent. Meeting with therapist today. Client Response/Progress/Benefit: [] Pt participated when prompted. Attentive. Daily symptom tracker notes 4/5 for depression and anxiety.. Reports significant regression. Fixated on her medications and the side effects. Discounting any progress that she has made over the past several weeks as she was unable to be alone, drive, or functioning, however currently can complete those tasks with ease. Researching medications and side effects. ? I?ve been on 15 medications and none have worked?. Uncertainty. Shared that she met with a ?natural doctor? in the past who told her that antidepressants are bad for her and linked with school shootings. Intrusive thoughts, anxiety, fear, and considering stopping all her medications. Group provided empathy and support. Allowed pt to process frustrations. Regression noted. Will continue in IOP to prevent decompensation, stabilize mood, and decrease intrusive thoughts. Narrative Note: []
--- NOTE | 2024-05-03 15:13 | BH.MDN ---
Multi-Disciplinary Note Note 60-min Individual: Time Started:: 10:40 Date: 05/03/24 Purpose of session/treatment goals addressed:: To discuss barriers keeping pt stuck, challenge distorted thinking patterns, and set ERP goals. Eye Contact:: Good Motor Activity:: Appropriate Appearance:: Casual Speech:: Soft Mood:: Anxious and Depressed Affect:: Constricted Thoughts:: Circular and No evidence of hallucinations/delusions noted Staff Interventions:: thought challenging, CBT techniques, mindfulness skills, strengths perspective and other (completed exercise from the [employer] Over OCD workbook) Client Response:: Pt responded well to session, open to meeting with therapist. Pt reports she is depressed and she is worried that this isn't normal and I'm not getting better. Pt receptive to thought challenging by therapist and able to combat these thoughts looking at evidence. Evidence includes; prior to this week pt was cooking regularly, staying off online forums, exercising, getting sunlight, and consistently doing her ERP goals. This week pt has numerous stressors contributing to her depression including her period just ending, stress with family, and due to her depressed mood pt has been isolating and getting back on reddit for OCD which makes it worse. Pt recognizes that she does not have control over everything regarding her depression, but pt can control what she does when she is depressed. Pt receptive to discussion on engaging with family and using healthy distractions to help pt when she wants to isolate. Pt also learned about the different thoughts/beliefs that she has that contribute to her OCD and this helped pt gain insight to why she is feeling stuck. Pt completed the assessment from the [employer] Over OCD Workbook and pt's beliefs include thought-action fusion, threat exaggeration, and need for absolute certainty. Pt was given a handout to give her more information on these. Pt and therapist also discussed changes to pt's exposure goals and fear ladder and pt is agreeable to work on exposure to images over the weekend. Pt will work on looking at pictures of knives over the weekend. Risks/Concerns:: Pt denies any suicidal ideations, plan, or intent. Pt denies any thoughts of . Progress Toward Goals/Plan:: Pt has been making progress towards tx goals AEB pt's self-report of improved functioning most days and her improvement on ERP. However, pt's mood continues to be variable based on external stressors and today pt is reporting a depressed mood. By the end of session, pt was reporting improvement in mood as she was challenging her perspective and gaining insight to thought patterns that keep her stuck. Pt will work on her ERP goal this weekend and continue IOP tx to prevent decompensation, improve daily functioning, and increase distress tolerance. Time Stopped:: 11:40
--- NOTE | 2024-05-06 09:00 | BH.SGPN.GN ---
Behaviors/Verbalizations/Mental Status: [] Eye contact is good. Motor activity is appropriate. Appearance is casual. Speech is Appropriate. Mood is euthymic. Affect is full. Thoughts are linear and logical. No evidence of psychosis. Reviewed daily check in sheet and pt reports 1/5 for suicidal ideations and 0/5 for intent. This not unusual and pertains more to passive thoughts of . Client Response/Progress/Benefit: [] Pt participated when prompted. Attentive. Daily symptom tracker notes 3/5 for depression and 2/5 for anxiety. Pt reports decompensation over the weekend which resulted in increased depression and poor sleep. ? I?ve had no sleep?. Limited engagement. Focused on the lack of effectiveness of her medications and is contemplating stopping all her medications. Increase in intrusive thoughts and reassurance behaviors. Limited benefit from group. Decompensation. Will continue in IOP to prevent further decompensation, decrease intrusive thoughts, and improve functioning. Narrative Note: []
--- NOTE | 2024-05-06 10:20 | BH.SGPN.GN ---
Behaviors/Verbalizations/Mental Status: []Pt alert and oriented, neatly dressed and groomed. Eye contact good. Motor activity appropriate. Speech within normal limits. Affect congruent, mood depressed. Thoughts linear, logical, no signs of hallucinations or delusions. Client Response/Progress/Benefit: [] Pt was attentive during psychoeducation and participated in group activity. Group discussed what contributes to a person?s perspective and how perspective can positively or negatively impact mental health treatment. Pt reflected on their perspective today and how it is impacting them. Pt shared their perspective is ?more negative today? as pt has been feeling more depressed the last few days, but pt recognizes that she is trying to bounce back. ?Pt appeared to benefit from increasing awareness of different perspectives and how they can affect mental health. Pt will continue IOP tx to reduce negative self-talk, improve daily functioning, and increase distress tolerance skills. ? Narrative Note: []
--- NOTE | 2024-05-06 14:14 | BH.MDN_ITS ---
Multi-Disciplinary Note Note 60-min Individual: Time Started:: 11:30 Date: 05/06/24 Purpose of session/treatment goals addressed:: To work on goal #2 of pt's tx plan by identifying and challenging cognitive distortions contributing to depression. Eye Contact:: Good Motor Activity:: Appropriate Appearance:: Casual Speech:: Tangential and Soft Mood:: Anxious and Depressed Affect:: Constricted (tearful) Thoughts:: Circular, Other (ruminations and negative self-talk.) and No evidence of hallucinations/delusions noted Staff Interventions:: thought challenging (pt had a lot cognitive distortions about herself and her prognosis today.), motivational interviewing, mindfulness skills, strengths perspective and taught coping skills (taught pt forbes mind-form of dialectical thinking.) Client Response:: Pt responded well to session, open to meeting with therapist. Pt reports feeling very depressed this morning and shared she did not sleep last night. Spoke with pt's as well who confirmed pt did not sleep, but she did sleep Monday. Pt shared belief that the new medication Pristiq) is making pt's depression worse and she wants to know if she should stop it or push through. Pt has a history of medications not being effective a n causing side effects. Pt feels that she was better without medications, but after further discussion, pt could see that the weeks she was doing better while in IOP she was on Abilify. Pt is more open today to getting on control which was recommended by Dr. Hernandez due to pt's symptoms consistently worsening the week following her period. Pt did well with gentle thought challenging by therapist as pt was really struggling with all or nothing thinking at the beginning of session. Ex: I'll never get better, I'm a terrible mom, and nothing is going to help so why try. Pt recognizes that her thought patterns exacerbate her depression and they reinforce isolation. Pt learned about forbes mind and this helped pt see how she is taking emotion brain as fact and not utilizing the facts to help pt see in the brar. Pt and therapist walked through a few examples of negative thoughts pt has currently and pt wrote out the forbes mind response to these. Pt was also able to give herself credit for accomplishing her ERP goals and pt feels she is doing much better with her OCD symptoms. Pt will continue working on her ERP goals for homework and she will also practice forbes mind. Risks/Concerns:: Pt denies any suicidal ideations, plan, or intent. Pt denies any thoughts of . Progress Toward Goals/Plan:: Pt reports worsening depressive symptoms since getting on Pristiq. Pt admits that the side effects she is having is likely being exacerbated by pt's anxiety about medications, but overall pt has not been satisfied by antidepressants. Consulted with Dr. Hernandez and was was encouraged to discontinue Pristiq. Pt will see Dr. Hernandez on Monday05/08/24 to review pt's medications and discuss control and weaning other meds. Pt receptive to discussion today on thought patterns impacting pt's depressive symptoms. Pt willing to work on forbes mind for homework and she will attend [facility] next on monday. Time Stopped:: 12:25
--- NOTE | 2024-05-08 09:00 | BH.SGPN.GN ---
Behaviors/Verbalizations/Mental Status: [] Eye contact is good. Motor activity is appropriate. Appearance is casual. Speech is Appropriate. Mood is euthymic. Affect is congruent. Thoughts are linear and logical. No evidence of psychosis. Reviewed daily check in sheet and no reports of suicidal ideations or intent. Client Response/Progress/Benefit: [] Pt was an active participant in group discussions. Attentive. Did well to identify 2 mental health wins. Wins included making a point to cook a meal for her family. Reflected that this did help improve her mood and sense of accomplishment. Additional win noted as feeling less anxious and more hopeful compared to monday. Reports beliefs that weening off her medication helped. Stressor noted as struggling to get rid of fruit flies in her house. Benefited from group support, encouragement, and feedback. Will continue in IOP to prevent decompensation, promote mood stability, and increase consistent use of healthy coping. Narrative Note: []
--- NOTE | 2024-05-08 10:10 | BH.SGPN.GN ---
Behaviors/Verbalizations/Mental Status: []Pt alert and oriented, neatly dressed and groomed. Eye contact good. Motor activity appropriate. Speech within normal limits. Affect congruent, mood euthymic. Thoughts linear, logical, no signs of hallucinations or delusions. Client Response/Progress/Benefit: [] Pt participated during small group discussions. Attentive during psychoeducation about defense mechanisms. Showed engagement during small group discussions and helped group identify which defense mechanisms were maladaptive, adaptive, or ?somewhere in the brar.? Pt worked with small group on identifying how each defense mechanism can impact mental health and gave examples. Pt stated she learned that not all defense mechanisms are bad.?Seemed to benefit from gaining awareness about the different defense mechanisms. Pt to continue IOP tx to promote use of healthy coping skills, challenge distorted thoughts, and further improve distress tolerance. Narrative Note: []
--- NOTE | 2024-05-08 12:47 | PCM.BH.PN ---
Progress Note Progress Note: History of Present Illness/Interim History: The patient is a 34-year-old female with a history of depression and OCD who is seen in follow-up at the [facility] behavioral [facility]. I last saw the patient 2 weeks ago. Since that time the patient has discontinued BuSpar due to side effects and discontinued ZAFAR but then went back on gabapentin and says she wants to stay on it. She tried Pristiq 1 week ago but only took it for 4 days and discontinued it due to side effects including nausea and vomiting. The burping which she was stressing about 2 weeks ago completely resolved over 1 week ago. She does now feel that Lamictal makes her worse and makes her have no motivation to get up in the morning and wants to discontinue it. She feels her mood is a little better today but she had passive thoughts of last Monday for unknown reasons. She denies any suicidal ideation. She feels that doing the exposure and response prevention while doing the IOP is exhausting but she feels she is benefiting. She denies also homicidal ideation, plan for suicide, hallucinations or delusions. Her ego-dystonic thoughts from OCD are still present and include thoughts of self-harm, suspicion of being a pedophile and other numerous negative intrusive thoughts that she is working on with her ERP therapist. She states that her symptoms really are worse the first week of her menstrual cycle. She took numerous SSRIs in the past with horrible side effects so is uncertain what to do about this. Current Psychiatric Medications: [] Lamictal 50 mg p.o. daily; gabapentin 300 mg p.o. nightly; Abilify 2 mg p.o. daily (x 5 weeks); Pristiq discontinued 1 week ago Mental Status Examination: [] The patient is a 34-year-old female who is casually dressed and groomed with good hygiene and appears normal for stated age. She has no psychomotor agitation or retardation. Eye contact is good and speech is normal rate and rhythm and fluent with no pressure. Mood is anxious. Affect is minimally constricted. Thought process is goal-directed and organized. Thought content: The patient patient tends to perseverate on various side effects of medications at times. There is no evidence of passive thoughts of , suicidal ideation, plan for suicide, homicidal ideation, hallucinations or delusions. Her intrusive thoughts of her OCD do persist and she has been treated for these and they are described in the present illness. Reality testing is intact. Judgment is intact. Insight is fair to good. Impulsivity is low. Diagnoses: [] 1. OCD 2. Major depressive disorder, recurrent, moderate 3. Primary support and work issues Plan: [] The patient will continue the IOP at [facility] as it seems to be benefiting her symptoms. The risk, options, possible complications and side effects of the medications were again discussed with the patient and she understands accepts these. She agrees to discontinue her Lamictal as she feels it makes her worse. After 1 week off the Lamictal if she worsens she will increase her Abilify to 4 mg p.o. daily. In addition the paperwork patient will make an appointment with her stem cutter to consider adding oral contraceptive pill to help with her PMDD symptoms. She will not does not tolerate any SSRIs or SNRIs so I do not want to simply add 1 of those. She will continue to follow-up with her outpatient providers and I will see the patient in follow-up in several weeks.
--- NOTE | 2024-05-09 09:00 | BH.SGPN.GN ---
Behaviors/Verbalizations/Mental Status: []Pt alert and oriented, neatly dressed and groomed. Eye contact good. Motor activity appropriate. Speech within normal limits. Affect congruent, mood euthymic. Thoughts linear, logical, no signs of hallucinations or delusions. Reviewed pt?s symptom tracker, no risk for suicidal ideation, plan, or intent 04/29/24. Client Response/Progress/Benefit: []Pt was an active participant in group discussions. Attentive. Able to identify mental health wins including being very productive yesterday, drinking coffee this morning, and bouncing back from a recent depression episode. Pt's stressor today is I'm letting my two oldest stay home alone today. Pt stated feeling happy this morning despite feeling uneasy about her sons being home alone. Pt receptive to feedback and emotional support from peers which pt reported was helpful. Progress noted. Benefited from group support, encouragement, and feedback. Will continue in IOP to promote use of healthy coping skills, reduce negative self-talk, and improve daily functioning. Narrative Note: []
--- NOTE | 2024-05-09 10:15 | BH.SGPN.GN ---
Behaviors/Verbalizations/Mental Status: []Pt alert and oriented, casually dressed and groomed. Eye contact good. Motor activity appropriate. Speech within normal limits. Affect congruent, mood anxious. Thoughts linear, logical, no signs of hallucinations or delusions. Client Response/Progress/Benefit: [] Pt receptive to session AEB contributing to group discussion, as well as listening attentively to others, and taking notes. Worked with group to brainstorm the positive and negative aspects of stress on physical and mental health as well as the impact of distress on performance, relationships, and mental health. Pt shared their current personal top stressors to be: caregiving responsibilities, cardiac health, and managing her mental health. Shared when feeling overwhelmed with stress pt tends to shut down or sleep to avoid. Benefited from increased awareness of positive and negative stress as well as how stress impact individuals. Will continue in IOP to prevent decompensation, increase ERP goals, and improve dialectical thinking. Narrative Note: []
--- NOTE | 2024-05-09 11:15 | BH.SGPN.GN ---
Behaviors/Verbalizations/Mental Status: [] Pt alert and oriented, casually dressed and groomed. Eye contact good. Motor activity appropriate. Speech within normal limits. Affect congruent, mood depressed. Thoughts linear, logical, no signs of hallucinations or delusions. Client Response/Progress/Benefit: [] Pt receptive to session AEB contributing to group discussion, as well as listening attentively to others, and taking notes. Worked with group to brainstorm the positive and negative aspects of stress on physical and mental health as well as the impact of stress on performance, relationships, and mental health. Pt shared their top stressors to be: her OCD, managing mental health after IOP, and being alone. Identified the strategies of accept and adapt to use towards stressor of OCD. Benefited from increased awareness of positive and negative stress as well as how stress impact individuals. Will continue in IOP to prevent decompensation/re-admission to psych unit, decrease intrusive thoughts, and improve functioning.
--- NOTE | 2024-05-09 15:43 | BH.MDN ---
Multi-Disciplinary Note Note 30-min Individual: Time Started:: 12:15 Date: 05/09/24 Purpose of session/treatment goals addressed:: To work on goal #1 of pt's tx plan and to discuss recent medication changes. Eye Contact:: Good Motor Activity:: Appropriate Appearance:: Neat Speech:: Appropriate Mood:: Euthymic (hopeful) Affect:: Full Thoughts:: Linear, Logical and No evidence of hallucinations/delusions noted Staff Interventions:: thought challenging, CBT techniques, strengths perspective, goal setting and other (discussed reframing techniques, discussed recent psych visit with Dr. Hernandez, discussed ERP goals for the weekend. ) Client Response:: Pt responded well to session, open to meeting with therapist. Pt shared she is doing much better today as described below. Pt is feeling hopeful again and she shared that her told me to write a letter to myself to read when I go through this again next month. Pt stated this will be helpful as it appears there is a pattern in pt's depression associated with her menstrual cycle. Pt reports that she also plans to better prepare next month so she can be more compassionate and have more acceptance. Pt receptive to working on behavioral activation for the weekend which includes ACES (accomplish, closeness, enjoyment, and self-care). Pt reports she will also continue to work on her exposure goal of having pictures of knives at home and visualizing herself using them. Pt and therapist will work on exposure during session next week. Risks/Concerns:: Pt denies any suicidal ideations, plan, or intent. Pt denies any thoughts of . Progress Toward Goals/Plan:: Pt reports a significant improvement in mood today and yesterday compared to last week and Monday. Pt contributes several things to this including stopping two of her medications through Dr. Cabral recommendations, reduced PMDD symptoms, and being productive yesterday. Pt reports despite being depressed earlier this week, she still worked on her exposure goals and she feels proud of herself for her progress. Pt will continue to work on these goals over the weekend and she will work on ACES for homework to help pt continue engaging in the things the have helped over the past two days. Pt will continue IOP tx to promote mood stability, increase distress tolerance, and improve self-confidence. Time Stopped:: 12:50
--- NOTE | 2024-05-13 09:05 | BH.SGPN.GN ---
Behaviors/Verbalizations/Mental Status: [] Eye contact is good. Motor activity is appropriate. Appearance is casual. Speech is Appropriate. Mood is anxious. Affect is congruent. Thoughts are linear and logical. No evidence of psychosis. Reviewed daily check in sheet and no reports of suicidal ideations or intent. Client Response/Progress/Benefit: [] Pt participated at times during the group discussions. Attentive. Daily symptom tracker notes minimal distress. ? Pretty good weekend?. She talked at length regarding her intrusive thoughts and OCD. Discussed the progress she has made through exposure work. Shared that she has not used a knife nor had a knife in her kitchen for an extended period of time due to intrusive thoughts about hurting self or others with it. She plans to work with program therapist this week on gradual exposure to knives. She is hopeful. ? I?ve learned a lot?. Progress noted. Benefited from group support, encouragement, and feedback. Will continue in IOP to prevent decompensation/re-admission to psych unit, decrease intrusive thoughts, and improve functioning Narrative Note: []
--- NOTE | 2024-05-13 10:10 | BH.SGPN.GN ---
Behaviors/Verbalizations/Mental Status: [] Client alert and oriented, casual appearance. Eye contact good. Motor activity appropriate. Speech within normal limits. Affect congruent, mood euthymic. Thoughts linear, logical, no signs of hallucinations or delusions. Client Response/Progress/Benefit: []Client engaged participant during group session as evidenced by contributions during group discussions, appearing to listen to others, and taking notes. Client engaged in discussion about barriers that keep people from having difficult confrontations. Group identified potential consequences to avoiding difficult conversations are resentment, increased anxiety, needs not met, increased conflict, and negative thoughts. Client appeared attentive during psychoeducation about techniques and skills to help have crucial conversations. Client seemed to benefit from increased awareness and education about importance of having difficult conversations and recognizing the impact of avoiding such conversations. Client to continue IOP to decrease anxious avoidance, promote healthy coping, and prevent decompensation.
--- NOTE | 2024-05-13 11:15 | BH.SGPN.GN ---
Behaviors/Verbalizations/Mental Status: []Pt alert and oriented, neatly dressed and groomed. Eye contact good. Motor activity appropriate. Speech within normal limits. Affect congruent, mood euthymic. Thoughts linear, logical, no signs of hallucinations or delusions. Client Response/Progress/Benefit: [] Pt was an active participant, engaged in activities and discussion. Pt able to identify ways they negatively contribute to crucial conversations and pt was engaged during psychoeducation of the different ways to build interpersonal effectiveness skills. Pt and peers practiced mirroring and active listening in partners. Group reviewed [employer] and used the handout to help map out how they would like a crucial conversation in their life to go. Pt identified a conversation pt needs to have with her son about getting a job. Pt practiced I-statements and identified ways she could empathize with her son and appear confident. Pt appeared to benefit from learning and practicing interpersonal effectiveness skills. Pt will continue IOP tx to promote mood stability, reduce negative self-talk, and improve distress tolerance. Narrative Note: []
== END 2024-05-13 23:59 ==
LOC: BHIOP 07:37
PROVIDERS: PCP Family Medicine; Referring Provider Psychiatry & Neurology Psychiatry; Visit Provider Psychiatry & Neurology Psychiatry
DX: F33.1 Major depressive disorder, recurrent, moderate (principal); F42.9 Obsessive-compulsive disorder, unspecified
CPT/HCPCS: S9480; 90832; 90834; 90837; 90847; 90853

== ENCOUNTER 2024-05-14 07:07 | Outpatient (RCR) | payer SELFPAY ==
[2024-05-14 00:57] VITALS: BP 150/70; PULSE 79
== END 2024-05-23 12:08 | disposition home or self-care (01) ==
LOC: BHIOP 07:07
PROVIDERS: PCP Family Medicine; Referring Provider Psychiatry & Neurology Psychiatry; Visit Provider Psychiatry & Neurology Psychiatry
DX: F33.1 Major depressive disorder, recurrent, moderate (principal); F42.9 Obsessive-compulsive disorder, unspecified
CPT/HCPCS: S9480; 90832; 90834; 90853